=== PATIENT | male | born 1930 | race Caucasian/White ===

== ENCOUNTER 2016-07-06 08:41 | Emergency (ER) ==
[2016-07-06 08:45] VITALS: BP 153/77; TEMP 98.8; BMI 25.1
--- NOTE | 2016-07-06 09:15 | ED.PDOC ---
General ED Provider: Dr. SUZETTE YOUNG Chief Complaint: Nosebleed Stated Complaint: nose bleed Time Seen by Physician: 08:48 (multiple nose bleed last week also) Mode of Arrival: Walk-In Information Source: Patient Exam Limitations: No limitations Primary Care Provider: ANDRES MOLINA Nursing and Triage Documentation Reviewed and Agree: Yes Review of Systems - Review Of Systems Constitutional: Reports: No symptoms Eyes: Reports: No symptoms Ears, Nose, Mouth, Throat: Reports: Epistaxis Respiratory: Reports: No symptoms Cardiac: Reports: No symptoms GI: Reports: No symptoms : Reports: No symptoms Musculoskeletal: Reports: No symptoms Skin: Reports: No symptoms Neurological: Reports: No symptoms Endocrine: Reports: No symptoms Hematologic/Lymphatic: Reports: No symptoms All Other Systems: Reviewed and Negative Past Medical History - Past Medical History Previously Healthy: No Endocrine: Reports: None Cardiovascular: Reports: Hypertension Respiratory: Reports: None Hematological: Reports: None Gastrointestinal: Reports: None Genitourinary: Reports: None Neuro/Psych: Reports: Parkinson's Musculoskeletal: Reports: None Cancer: Reports: None - Surgical History General Surgical History: Reports: None - Family History Family History: Reports: None - Social History Smoking Status: Never smoker Hx Substance Use: No Alcohol Screening: None Physical Exam - Physical Exam Appearance: Well-appearing, No pain distress, Well-nourished Eyes: LONNIE, EOMI, Conjunctiva clear ENT: Epistaxis (right sided stoped spontanously in ED ) Respiratory: Airway patent, Breath sounds clear, Breath sounds equal, Respirations nonlabored Cardiovascular: RRR, Pulses normal, No rub, No murmur GI/: Soft, Nontender, No masses, Bowel sounds normal, No Organomegaly Musculoskeletal: Normal strength, ROM intact, No edema, No calf tenderness Skin: Warm, Dry, Normal color Neurological: Sensation intact, Motor intact, Reflexes intact, Cranial nerves intact, Alert, Oriented Psychiatric: Affect appropriate, Mood appropriate Critical Care Note - Critical Care Note Total Time (mins): 0 Course - Course Orders, Labs, Meds: Orders Category Date Time Status CBC W/ AUTO DIFF Stat LAB 07/06/16 09:02 Ordered PARTIAL THROMBOPLASTIN TIME Stat LAB 07/06/16 09:02 Ordered PT WITH INR Stat LAB 07/06/16 09:02 Ordered Vital Signs: Temp Pulse Resp BP Pulse Ox 07/06/16 08:41 98.8 F 66 20 153/77 H 96 Departure - Departure Time of Disposition: 09:14 (SPOKE TO DR HASKINS WILL SEE PT IN OFFICE/ CLINIC RIGHT NOW) Disposition: HOME SELF-CARE Discharge Problem: Epistaxis Instructions: Nosebleed (ED) Condition: Good Pt referred to PMD for follow-up: No Additional Instructions: Please call your Family Physician as soon as possible to schedule a follow-up appointment. Allergies/Adverse Reactions: Allergies Sulfa (Sulfonamide Antibiotics) Allergy (Severe, Verified 07/06/16 08:45) Rash Home Medications: Ambulatory Orders Aspirin 81 mg PO DAILY #1 tab-cap 07/05/16 Calcium Carbonate [Calcium] 1,000 mg PO DAILY #2 tab-cap 07/05/16 Carbidopa/Levodopa [Carbidopa-Levodopa 25-100 Tab] 1 each PO 3xDaily #1 tab-cap 07/05/16 Losartan Potassium 50 mg PO BID #1 tab-cap 07/05/16 Lovastatin 40 mg PO DAILY #1 tab-cap 07/05/16 Multivitamin [Multi-Vitamin Daily] 1 each PO DAILY #1 tab-cap 07/05/16 [place]-3/Dha/Epa/Fish Oil [Fish Oil 1,000 Mg Softgel] 1,000 mg PO DAILY #1 tab- cap 07/05/16 Rasagiline Mesylate [Azilect] 1 mg PO DAILY #1 tab-cap 07/05/16 Vit A/Vit C/Vit E/Zinc/Copper [Preservision Areds Softgel] 1 each PO BID tab- cap 07/05/16 Vitamin B Complex & Vit C No.4 [Super B Complex] 150 mg PO DAILY #1 tab-cap
[2016-07-06 09:20] LABS: BASOPHILS % (AUTO) 0.4 % (0.0-3.0); EOSINOPHILS % (AUTO) 0.6 % (0.0-7.0); HEMATOCRIT 37.1 % (42.0-52.0); HEMOGLOBIN 12.9 g/dl (14.0-18.0); IMMATURE GRANULOCYTE % (AUTO) 0.3 % (0.0-5.0); LYMPHOCYTES # (AUTO) 1.4 K/uL (0.60-3.4); LYMPHOCYTES % (AUTO) 19.7 (10.0-50.0); MEAN CORPUSCULAR HEMOGLOBIN 31.3 pg (27.0-31.0); MEAN CORPUSCULAR HGB CONC 34.8 (31.8-35.4); MONOCYTES # (AUTO) 0.6 K/uL (0.4-2.0); MONOCYTES % (AUTO) 8.6 (0-10); NEUTROPHILS # (AUTO) 4.8 K/ul (2.0-6.9); NEUTROPHILS % (AUTO) 70.4; PLATELET COUNT 232 10^3/uL (140-440); RED BLOOD COUNT 4.12 10^6/ul (4.70-6.10); WHITE BLOOD COUNT 6.85 K/ul (4.2-10.2)
[2016-07-06 09:35] LABS: PARTIAL THROMBOPLASTIN TIME < 21.0 SEC (23.9-40.0); PROTHROMBIN TIME 10.4 SEC (9.3-11.0)
== END 2016-07-06 09:24 | disposition home or self-care (01) ==
LOC: ED 08:41
DX: R04.0 Epistaxis (principal); I10 Essential (primary) hypertension; Z79.899 Other long term (current) drug therapy
CPT/HCPCS: 36415; 85025; 85610; 85730; 99282

== ENCOUNTER 2017-01-03 14:41 | Emergency (ER) | payer OTHER ==
[2017-01-03 14:58] VITALS: BMI 25.0
--- NOTE | 2017-01-03 15:09 | ED.PDOC ---
General ED Provider: Dr. ALIYAH ZAPATA Chief Complaint: Seizure Stated Complaint: Seizure X2 witnessed by Dr. Molina in office Time Seen by Physician: 15:05 Mode of Arrival: Wheelchair Information Source: Patient, Family Exam Limitations: No limitations Primary Care Provider: ANDRES MOLINA Nursing and Triage Documentation Reviewed and Agree: Yes Review of Systems - Review Of Systems Constitutional: Reports: Malaise (Has had more seizure type episodes reported by family in last 12 days) Respiratory: Reports: No symptoms All Other Systems: Reviewed and Negative Past Medical History - Past Medical History Previously Healthy: No Endocrine: Reports: None Cardiovascular: Reports: Hypertension Respiratory: Reports: None Hematological: Reports: None Gastrointestinal: Reports: None Genitourinary: Reports: None Neuro/Psych: Reports: Parkinson's Musculoskeletal: Reports: None Cancer: Reports: None - Surgical History General Surgical History: Reports: None - Family History Family History: Reports: None - Social History Smoking Status: Never smoker Hx Substance Use: No Alcohol Screening: None Physical Exam - Physical Exam Appearance: Well-appearing Eyes: LONNIE, EOMI, Conjunctiva clear ENT: Nose normal, Oropharynx normal Neck: Supple Respiratory: Breath sounds clear Cardiovascular: RRR, Pulses normal GI/: Soft, Nontender Musculoskeletal: Normal strength, ROM intact, No edema Skin: Warm, Dry, Normal color Neurological: Sensation intact, Motor intact Psychiatric: Affect appropriate, Mood appropriate Interpretation - Radiology Interpretation Radiology Interpretation By: Radiologist Radiology Results: Negative Exam Interpreted: CT Scan (Head) Xray Comments: No acute IC process - Landscape Supervisor Rate: Normal Rhythm: Sinus - EKG Interpretation Time of EKG #1: 16:02 Rate: Normal Rhythm: Sinus Ectopy: None Interpretation: T wave changes non specific Re-Evaluation - Re-Evaluation Time of Re-Evaluation: 16:30 Status: Unchanged Vital Signs Stable: Yes Appearance: NAD Lungs: Clear Skin: Warm and Dry Neuro: Alert and Oriented X3 Physician Notification - Case Discussed Physician Notified: Dr. Molina Time of Notification: 16:30 (Discussed transfer plan) Critical Care Note - Critical Care Note Total Time (mins): 45 Course - Course Hematology/Chemistry: 01/03/17 15:20 01/03/17 15:20 Orders, Labs, Meds: Lab Review 01/03/17 01/03/17 01/03/17 15:15 15:20 15:20 WBC 4.65 RBC 4.26 L Hgb 12.8 L Hct 37.6 L MCV 88.3 MCH 30.0 MCHC 34.0 RDW Coeff of Darrel 13.2 Plt Count 190 Immature Gran % (Auto) 0.2 Neut % (Auto) 44.3 Lymph % (Auto) 41.3 Irwin % (Auto) 9.9 Eos % (Auto) 3.7 Baso % (Auto) 0.6 Immature Gran # (Auto) 0.0 Neut # 2.1 Lymph # 1.9 Irwin # 0.5 Eos # 0.2 Baso # 0.0 Sodium 137 Potassium 4.4 Chloride 104 Carbon Dioxide 27 Anion Gap 10.4 BUN 24 H Creatinine 1.21 H Estimated GFR (MDRD) 57.00 BUN/Creatinine Ratio 19.83 Glucose 151 H Calcium 9.2 Total Bilirubin 0.38 AST 15 ALT < 6 L Alkaline Phosphatase 67 Troponin I 0.0260 Total Protein 6.1 Albumin 3.4 Globulin 2.7 Albumin/Globulin Ratio 1.26 Urine Color Urine Clarity Urine pH Ur Specific [place] Urine Protein Urine Glucose (UA) Urine Ketones Urine Blood Urine Nitrite Urine Bilirubin Urine Urobilinogen Ur Leukocyte Esterase 01/03/17 16:05 WBC RBC Hgb Hct MCV MCH MCHC RDW Coeff of Darrel Plt Count Immature Gran % (Auto) Neut % (Auto) Lymph % (Auto) Irwin % (Auto) Eos % (Auto) Baso % (Auto) Immature Gran # (Auto) Neut # Lymph # Irwin # Eos # Baso # Sodium Potassium Chloride Carbon Dioxide Anion Gap BUN Creatinine Estimated GFR (MDRD) BUN/Creatinine Ratio Glucose Calcium Total Bilirubin AST ALT Alkaline Phosphatase Troponin I Total Protein Albumin Globulin Albumin/Globulin Ratio Urine Color Yellow Urine Clarity Clear Urine pH 6.0 Ur Specific [place] 1.015 Urine Protein Negative Urine Glucose (UA) Negative Urine Ketones Negative Urine Blood Negative Urine Nitrite Negative Urine Bilirubin Negative Urine Urobilinogen 1.0 Ur Leukocyte Esterase Negative Orders Category Date Time Status EKG-(ED ONLY) Stat CARDIO 01/03/17 15:55 Completed CBC W/ AUTO DIFF Stat LAB 01/03/17 15:20 Completed COMPREHENSIVE METABOLIC PANEL Stat LAB 01/03/17 15:20 Completed TROPONIN I Stat LAB 01/03/17 15:15 Completed URINALYSIS C & S IF INDICATED Stat LAB 01/03/17 16:[address] HEAD W/O CONTRAST Stat RADS 01/03/17 15:07 Completed ULTRASOUND DOPPLER CAROTID [U/S DOPPLER CAROTID] Stat RADS 01/03/17 15:49 Ordered Vital Signs: Temp Pulse Resp BP Pulse Ox 01/03/17 14:42 98.2 F 57 L 20 152/74 H 96 Departure - Departure Time of Disposition: 19:02 Disposition: TSF SHORT-TRM HOSP Discharge Problem: Seizure Instructions: Recurrent Seizures in Adults (ED) Condition: Stable Pt referred to PMD for follow-up: Yes (Follow up with Dr. Molina) Allergies/Adverse Reactions: Allergies Sulfa (Sulfonamide Antibiotics) Allergy (Severe, Verified 01/03/17 15:00) Rash Home Medications: Ambulatory Orders Aspirin 81 mg PO DAILY #1 tab-cap 07/05/16 Carbidopa/Levodopa [Carbidopa-Levodopa 25-100 Tab] 1 each PO 3xDaily #1 tab-cap 07/05/16 Losartan Potassium 50 mg PO BID #1 tab-cap 07/05/16 Lovastatin 40 mg PO DAILY #1 tab-cap 07/05/16 Rasagiline Mesylate [Azilect] 1 mg PO DAILY #1 tab-cap 07/05/16 Carvedilol [Coreg] 3.125 mg PO DAILY 01/03/17
[2017-01-03 15:23] LABS: BASOPHILS % (AUTO) 0.6 % (0.0-3.0); EOSINOPHILS # (AUTO) 0.2 K/ul (0.0-0.7); EOSINOPHILS % (AUTO) 3.7 % (0.0-7.0); HEMATOCRIT 37.6 % (42.0-52.0); HEMOGLOBIN 12.8 g/dl (14.0-18.0); IMMATURE GRANULOCYTE % (AUTO) 0.2 % (0.0-5.0); LYMPHOCYTES # (AUTO) 1.9 K/uL (0.60-3.4); LYMPHOCYTES % (AUTO) 41.3 (10.0-50.0); MEAN CORPUSCULAR VOLUME 88.3 fl (80.0-94.0); MONOCYTES # (AUTO) 0.5 K/uL (0.4-2.0); MONOCYTES % (AUTO) 9.9 (0-10); NEUTROPHILS # (AUTO) 2.1 K/ul (2.0-6.9); NEUTROPHILS % (AUTO) 44.3; PLATELET COUNT 190 10^3/uL (140-440); RED BLOOD COUNT 4.26 10^6/ul (4.70-6.10); WHITE BLOOD COUNT 4.65 K/ul (4.2-10.2)
--- NOTE | 2017-01-03 15:49 | CT ---
EXAM: CT head without contrast. HISTORY: Seizure. COMPARISON: None available. TECHNIQUE: Multiple axial images of the brain were obtained from the skull base through the vertex w ithout intravenous contrast. Multiplanar reformats were provided. FINDINGS: There is no intracranial hemorrhage or extraaxial collection. The ybarra-white differentiat ion is maintained without evidence for acute large vascular territory infarction. There are areas of periventricular and subcortical white matter low attenuation. The cortical sulci and cerebral ventr icles are symmetrically enlarged. The basal cisterns are well visualized. There is no hydrocephalus , mass effect, or midline shift. The paranasal sinuses and mastoid air cells are clear. The calvari um is intact. IMPRESSION: 1. No acute intracranial abnormality. 2. Chronic small vessel ischemic changes and atrophy.
[2017-01-03 15:56] LABS: ALANINE AMINOTRANSFERASE < 6 U/L (12-78); ALBUMIN 3.4 g/dL (3.4-5.0); ALBUMIN/GLOBULIN RATIO 1.26; ALKALINE PHOSPHATASE 67 U/L (56-119); ANION GAP 10.4; ASPARTATE AMINO TRANSFERASE 15 U/L (15-37); BILIRUBIN,TOTAL 0.38 mg/dL (0.00-1.20); BLOOD UREA NITROGEN 24 mg/dL (7-18); BUN/CREATININE RATIO 19.83; CALCIUM 9.2 mg/dL (8.2-10.2); CARBON DIOXIDE 27 mmol/L (23-31); CHLORIDE 104 mmol/L (98-107); CREATININE 1.21 mg/dL (0.60-1.10); GLUCOSE 151 mg/dL (82-115); POTASSIUM 4.4 mmol/L (3.5-5.1); SODIUM 137 mmol/L (136-145); TOTAL PROTEIN 6.1 g/dL (5.8-8.1)
[2017-01-03 16:16] LABS: BILIRUBIN,URINE Negative (NEGATIVE); KETONES,URINE Negative (NEGATIVE); LEUKOCYTE ESTERASE ,URINE Negative (NEGATIVE); NITRITE,URINE Negative (NEGATIVE); PROTEIN,URINE Negative (NEGATIVE); URINE, BLOOD Negative (NEGATIVE)
[2017-01-03 16:20] LABS: ADD URINE MICROSCOPIC NO
[2017-01-03 19:54] VITALS: BP 138/78; TEMP 98.3
== END 2017-01-03 19:45 | disposition short-term general hospital (02) ==
LOC: ED 14:41
DX: R56.9 Unspecified convulsions (principal); G20 Parkinson's disease; I10 Essential (primary) hypertension; Z79.899 Other long term (current) drug therapy
CPT/HCPCS: 36415; 80053; 81001; 84484; 85025; 93005; 93010; 96361; 96374; 96375; 99285

== ENCOUNTER 2018-10-08 09:44 | Emergency (ER) | payer OTHER ==
[2018-10-08 09:51] VITALS: BP 171/69; TEMP 98.1; BMI 25.1
--- NOTE | 2018-10-08 11:04 | CT ---
EXAM: CT of the head without contrast. History: Head trauma. Comparison: Head CT 01/03/2017 Technique: Multiplanar CT images through the head were obtained without the administration of IV con trast Findings: The visualized paranasal sinuses and mastoid air cells are clear in general. No acute zoraida varial abnormalities. Intracranially the ventricular and cisternal spaces are normal in size, shape and configuration for a patient of this age. No dominant mass or midline shift. No hydrocephalous. No acute intracranial hemorrhage or abnormal extraaxial fluid collections. Periventricular and subcortical white matter hy podensities are probably age appropriate. Impression: No acute intracranial process
--- NOTE | 2018-10-08 11:08 | CT ---
EXAM: CT of the cervical spine without contrast History: Head and neck trauma. Technique: Multiplanar CT images through the cervical spine were obtained without the administration of IV contrast. Comparison: Chest CT 10/08/2018 Findings: There is subcutaneous emphysema within the right neck and partially visualized right upper rib fractures. Small partially visualized right pneumothorax. Please see dedicated chest CT done o n the same day. Osteopenia. No acute fracture or subluxation of the cervical spine. Reversal of the normal cervical lordosis. Moderate to severe multilevel disc space narrowing with endplate sclerosis and osteophyte formation. Bony spinal canal is not significantly compromised. Moderate multilevel bilateral bony neural for narrowing secondary to uncovertebral and facet hypertrophy. The bony neural foraminal mike rowing is severe on the right at C5-6. Impression: No acute osseous abnormality of the cervical spine
--- NOTE | 2018-10-08 11:12 | CT ---
EXAM: CT of the thoracic spine without contrast History: Thoracic back trauma. Comparison: Chest CT 10/08/2018 Technique: Multiplanar CT images through the thorax were obtained without the administration of IV c ontrast Findings: For details in the visualized chest, please see dedicated chest CT done on the same day. Small right pneumothorax. Small right hemothorax. There is subcutaneous emphysema along the right c hest wall. Partially visualized right-sided rib fractures. Atherosclerotic vascular calcifications. 5 mm calculus within the left kidney. No acute fracture or subluxation of the thoracic spine. Mild chronic compression deformity involving the inferior endplate of T12. Moderate multilevel disc space narrowing with endplate sclerosis, ost eophyte formation and vacuum disc phenomenon. Bony spinal canal is not significantly compromised. Impression: 1. No acute osseous abnormality of the thoracic spine. 2. Degenerative disc disease. 3. For details within the thorax, please see dedicated chest CT done on the same day.
--- NOTE | 2018-10-08 11:14 | CT ---
EXAM: CT of the pelvis without contrast History: Pelvic trauma. Technique: Multiplanar CT images through the pelvis were obtained without the administration of IV c ontrast. Comparison: Lumbar spine CT 10/08/2018 Findings: Atherosclerotic vascular calcifications. Scattered colonic stool. Subcutaneous emphysema is seen on the right. Severe degenerative changes seen within the lower lumbar spine. No acute fra cture or dislocation. Chondrocalcinosis seen within the bilateral hip joints and within the pubic sy mphysis. Mild narrowing of bilateral hip joints. Impression: No acute pelvic fractures
--- NOTE | 2018-10-08 11:18 | CT ---
EXAM: CT of the chest without contrast History: Chest trauma. Technique: Multiplanar CT images through the thorax were obtained without the administration of IV c ontrast Findings: Heart is borderline enlarged. No pericardial effusion. Coronary calcifications and valvu lar calcifications of the heart. No thoracic aortic aneurysm. No pathologically enlarged thoracic l ymph nodes. There is a small right pneumothorax. Small right hemothorax. No obvious pulmonary cont usions. Extensive subcutaneous emphysema seen along the right chest wall and extending into the neck . There are displaced fractures of the right 5th through 10th ribs. Within the visualized upper abdomen, no grossly acute findings. 5 mm calculus within the left kidney . Moderate colonic stool. Sternotomy wires. Impression: 1. Small right pneumothorax. 2. Small right hemothorax. 3. No obvious pulmonary contusions. 4. Multiple displaced right-sided rib fractures. 5. Subcutaneous emphysema along the right chest wall
--- NOTE | 2018-10-08 11:24 | CT ---
Exam: CT lumbar spine without intravenous contrast. Comparison: MRI lumbar spine performed 08/10/2015. Reason for exam: Fall. FINDINGS: No vertebral body height loss is seen. There is multilevel degenerative disease seen thro ughout the lumbosacral spine with intervertebral body disc space height loss and osteophyte formation . There is straightening of the cervical lordotic curve. Air is seen in the subcutaneous fat adjace nt to the right posterior spinous muscles. Image interpretation is limited by diffuse osseous demine ralization. Small, partially evaluated right-sided effusion. T12-L1: Intervertebral body disc space height loss with osteophyte formation with mild central canal and foraminal narrowing. L1-L2: Intervertebral body disc space height loss with osteophyte formation resulting in mild to mod erate central canal and foraminal narrowing. L2-L3: Intervertebral body disc space height loss with osteophyte formation resulting in moderate ce ntral canal and foraminal narrowing. L3-L4: Broad-based disc bulge with facet hypertrophy and ligamentous calcification resulting in mode rate to severe central canal and foraminal narrowing. Laminectomy is seen at this location. L4-L5: Broad-based disc bulge with facet hypertrophy resulting in moderate to marked central canal a nd foraminal narrowing. Laminectomy is seen at this location. L5-S1: Broad-based disc bulge with facet hypertrophy resulting in mild to moderate central canal and foramina are not Impression: 1. No acute fracture is seen within the lumbosacral spine. 2. Multilevel moderate to severe degenerative disease as described. 3. Air in the subcutaneous fat adjacent to the right paraspinous muscles likely secondary to soft ti ssue trauma. Consider further evaluation. 4. Small, partially evaluated right-sided pleural effusion
--- NOTE | 2018-10-08 11:50 | ED.PDOC ---
General ED Provider: Dr. SUZETTE YOUNG Chief Complaint: Fall Stated Complaint: FALL CHEST WALL INJURY 12 HOURS AGO Time Seen by Physician: 10:00 (NURSE PRESENT AT ALL TIME ) Mode of Arrival: Walk-In Information Source: Patient Exam Limitations: No limitations Primary Care Provider: ANDRES MOLINA Nursing and Triage Documentation Reviewed and Agree: Yes Does patient meet sepsis criteria?: No System Inflammatory Response Syndrome: Not Applicable Sepsis Protocol: For patient's 13 years and over: Temp is 96.8 and below OR 101 and greater Pulse >90 BPM Resp >20/minute Acutely Altered Mental Status Are patient's symptoms suggestive of a new infection, such as: -Pneumonia -Skin, Soft Tissue -Endocarditis -UTI -Bone, Joint Infection -Implantable Device -Acute Abdominal Infection -Wound Infection -Meningitis -Blood Stream Catheter Infection -Unknown Trauma/Injury Complaint Exam - Trauma Complaint/Exam Location of Pain or Injury: Reports: Head, Neck, Chest, Back Mechanism of Injury: Reports: Fall (NONE SYNCOPAL FALL) Onset/Duration: 12 HRS Symptoms Are: Still present Timing of Treatment: Immediate Initial Severity: Moderate Current Severity: Moderate Character: Reports: Aching Aggravating: Reports: Movement Alleviating: Reports: Rest Associated Signs and Symptoms: Denies: LOC, Confusion, Memory loss, Lethargy, Vomiting, Bleeding, Bruising, Swelling, Extremity disuse, Painful respiration, Hoarseness, Dysphagia, Hemoptysis, Significant blood loss Related Surgical History: Reports: None Nexus Low Risk Criteria: No post-midline CS tender, No evidence of intoxicat., No Altered LOC, No focal neuro deficit Glascow Coma Scale (see protocol): 15 Trauma Findings: Absent: [place] eyes, Hemotympanum, Nasal deformity, Dental tenderness, Dental injury, Dental malocclusion, Neck tenderness, Neck spasm, SubQ Air, Crepitus, Airway obstructed, Trachea displaced, Labored respirations, Decreased breath sounds, Muffled heart sounds, Weak pulses, Absent pulses, Abdominal distention, Pelvic tenderness, Pelvic instability Differential Diagnoses: Contusions, Fracture, Dislocation, Sprain, Strain Review of Systems - Review Of Systems Constitutional: Reports: No symptoms Eyes: Reports: No symptoms Ears, Nose, Mouth, Throat: Reports: No symptoms Respiratory: Reports: No symptoms Cardiac: Reports: Chest pain (CHEST WALL) GI: Reports: No symptoms : Reports: No symptoms Musculoskeletal: Reports: No symptoms Skin: Reports: No symptoms Neurological: Reports: No symptoms Endocrine: Reports: No symptoms Hematologic/Lymphatic: Reports: No symptoms All Other Systems: Reviewed and Negative Past Medical History - Past Medical History Previously Healthy: No Endocrine: Reports: None Cardiovascular: Reports: Hypertension Respiratory: Reports: None Hematological: Reports: None Gastrointestinal: Reports: None Genitourinary: Reports: None Neuro/Psych: Reports: Parkinson's Musculoskeletal: Reports: None Cancer: Reports: None - Surgical History General Surgical History: Reports: None - Family History Family History: Reports: None - Social History Smoking Status: Never smoker Hx Substance Use: No Alcohol Screening: None - Immunizations Tetanus Shot up to Date: No Physical Exam - Physical Exam Appearance: Well-appearing, No pain distress, Well-nourished Eyes: LONNIE, EOMI, Conjunctiva clear ENT: Ears normal, Nose normal, Oropharynx normal Respiratory: Airway patent, Breath sounds clear, Breath sounds equal, Respirations nonlabored Cardiovascular: RRR, Pulses normal, No rub, No murmur GI/: Soft, Nontender, No masses, Bowel sounds normal, No Organomegaly Musculoskeletal: Limited ROM (CHEST WALL) Skin: Warm, Dry, Normal color Neurological: Sensation intact, Motor intact, Reflexes intact, Cranial nerves intact, Alert, Oriented Psychiatric: Affect appropriate, Mood appropriate Interpretation - Radiology Interpretation Radiology Interpretation By: Radiologist Radiology Results: Positive (RIGHT SIDED RIB FRACTURE FROM RIB 5 TO 10 WITH SMALL HEMO PNEUMOTHORAX) - Tape Calender Rate: Justo Rhythm: Sinus - EKG Interpretation Rate: Justo (LATERAL ISCHEMIA) Rhythm: Sinus ST Segment: Other (RBBB) Re-Evaluation - Re-Evaluation Time of Re-Evaluation: 12:00 Status: Unchanged Vital Signs Stable: Yes Pain Level: 4 Appearance: NAD Lungs: Clear Skin: Warm and Dry Neuro: Alert and Oriented X3 CV: RRR Physician Notification - Case Discussed Physician Notified: PMD Time of Notification: 12:08 (TRANSFER ) Admit/Transition Orders Entered by ED Provider: No Critical Care Note - Critical Care Note Total Time (mins): 120 Course - Course Hematology/Chemistry: 10/08/18 10:03 10/08/18 10:03 Orders, Labs, Meds: Lab Review 10/08/18 10/08/18 10:03 10:03 WBC 6.84 RBC 4.41 L Hgb 13.6 L Hct 40.3 L MCV 91.4 MCH 30.8 MCHC 33.7 RDW Coeff of Darrel 13.5 Plt Count 169 Immature Gran % (Auto) 0.3 Neut % (Auto) 75.5 Lymph % (Auto) 15.1 [place] % (Auto) 8.2 Eos % (Auto) 0.6 Baso % (Auto) 0.3 Immature Gran # (Auto) 0.0 Neut # (Auto) 5.2 Lymph # (Auto) 1.0 [place] # (Auto) 0.6 Eos # (Auto) 0.0 Baso # (Auto) 0.0 Sodium 138.7 Potassium 4.03 Chloride 101.7 Carbon Dioxide 30.5 H Anion Gap 10.53 BUN 25.7 H Creatinine 1.29 H Estimated GFR (MDRD) 52.00 BUN/Creatinine Ratio 19.92 Glucose 126.0 H Calcium 9.13 Total Bilirubin 0.82 AST 31.1 ALT 11.7 Alkaline Phosphatase 80.8 Total Protein 7.02 Albumin 4.32 Globulin 2.70 Albumin/Globulin Ratio 1.60 Orders Category Date Time Status EKG-(ED ONLY) Stat CARDIO 10/08/18 09:53 Completed CBC W/ AUTO DIFF Stat LAB 10/08/18 10:03 Completed COMPREHENSIVE METABOLIC PANEL Stat LAB 10/08/18 10:[address] CERVICAL SPINE W/O CONTRAST Stat RADS 10/08/18 09:[address] CHEST W/O CONTRAST Stat RADS 10/08/18 09:[address] HEAD W/O CONTRAST Stat RADS 10/08/18 09:[address] LUMBAR SPINE W/O CONTRAST Stat RADS 10/08/18 09:[address] PELVIS W/O CONTRAST Stat RADS 10/08/18 09:[address] THORACIC SPINE W/O CONTRAST Stat RADS 10/08/18 09:54 Completed Vital Signs: Temp Pulse Resp BP Pulse Ox 10/08/18 09:44 98.1 F 61 14 171/69 H 97 Departure - Departure Time of Disposition: 13:00 Disposition: TSF SHORT-TRM HOSP Discharge Problem: Hemothorax on right Pneumothorax Qualifiers: Pneumothorax type: traumatic Encounter type: initial encounter Qualified Code(s ): S27.0XXA - Traumatic pneumothorax, initial encounter Rib fractures Qualifiers: Encounter type: initial encounter Rib fracture type: multiple ribs Fracture type: closed Laterality: right Qualified Code(s): S22.41XA - Multiple fractures of ribs, right side, initial encounter for closed fracture Condition: Good Pt referred to PMD for follow-up: Yes IPMP verified?: No Additional Instructions: Please call your Family Physician as soon as possible to schedule a follow-up appointment. Allergies/Adverse Reactions: Allergies Sulfa (Sulfonamide Antibiotics) Allergy (Severe, Verified 10/08/18 09:59) Rash Home Medications: Ambulatory Orders Aspirin 81 mg PO DAILY #1 tab-cap 07/05/16 Carbidopa/Levodopa [Carbidopa-Levodopa 25-100 Tab] 1 each PO 3xDaily #1 tab-cap 07/05/16 Losartan Potassium 50 mg PO BID #1 tab-cap 07/05/16 Lovastatin 40 mg PO DAILY #1 tab-cap 07/05/16 Rasagiline Mesylate [Azilect] 1 mg PO DAILY #1 tab-cap 07/05/16 Carvedilol [Coreg] 3.125 mg PO DAILY 01/03/17 Amantadine HCl [Amantadine] 100 mg PO BID 10/08/18 Fludrocortisone Acetate 0.1 mg PO DAILY 10/08/18 Vit C/Vit E AC/Lut/Copper/Zinc [Preservision Lutein Softgel] 1 each PO BID 10/08 Disposition Discussed With: Patient, Family
== END 2018-10-08 13:44 | disposition short-term general hospital (02) ==
LOC: ED 09:44
DX: S27.0XXA Traumatic pneumothorax, initial encounter (principal); S22.41XA Multiple fractures of ribs, right side, initial encounter for closed fracture; S09.90XA Unspecified injury of head, initial encounter; S19.9XXA Unspecified injury of neck, initial encounter; G20 Parkinson's disease; I10 Essential (primary) hypertension; W19.XXXA Unspecified fall, initial encounter
CPT/HCPCS: 36415; 80053; 85025; 93005; 93010; 99285

== ENCOUNTER 2018-10-08 13:40 | Outpatient (CLI) ==
[2018-10-08 09:51] VITALS: BMI 25.1
== END 2018-10-08 14:05 | disposition short-term general hospital (02) ==
LOC: AMBL 13:40
PROVIDERS: ATTEND Internal Medicine
DX: S22.49XA Multiple fractures of ribs, unspecified side, initial encounter for closed fracture (principal); S27.2XXA Traumatic hemopneumothorax, initial encounter; T79.7XXA Traumatic subcutaneous emphysema, initial encounter; W19.XXXA Unspecified fall, initial encounter

== ENCOUNTER 2018-11-08 22:40 | Inpatient (IN) ==
[2018-11-08] MEDS ORDERED: ZOSYN 3.375 GM 3.375 GM in SODIUM CHLORIDE 50 ML IV STA (22:51)
[2018-11-08] MEDS ORDERED: TYLENOL PO STA (22:51)
[2018-11-08] MEDS ORDERED: VANCOMYCIN 1 GM in SODIUM CHLORIDE 250 ML IV STA (22:51)
[2018-11-08] MEDS ORDERED: SODIUM CHLORIDE 1,000 ML IV STA (22:51)
--- NOTE | 2018-11-08 23:02 | ED.PDOC ---
General ED Provider: Dr. ALICIA POWELL Chief Complaint: Fever Stated Complaint: Fever today T max 102.1. Had been given instruction to send to ER if > 102 by PCP. Recent history of Falls with rib fractures recenlty. Has a history of Parkinsons disease also. Time Seen by Physician: 22:59 Mode of Arrival: Stretcher Information Source: Patient, Family, Custodial, EMT Primary Care Provider: ANDRES MOLINA Nursing and Triage Documentation Reviewed and Agree: Yes Does patient meet sepsis criteria?: No System Inflammatory Response Syndrome: Not Applicable Sepsis Protocol: For patient's 13 years and over: Temp is 96.8 and below OR 101 and greater Pulse >90 BPM Resp >20/minute Acutely Altered Mental Status Are patient's symptoms suggestive of a new infection, such as: -Pneumonia -Skin, Soft Tissue -Endocarditis -UTI -Bone, Joint Infection -Implantable Device -Acute Abdominal Infection -Wound Infection -Meningitis -Blood Stream Catheter Infection -Unknown Miscellaneous Complaint Exam - Febrile Illness/Adult Complaint/Exam Onset/Duration: 1 day Symptoms Are: Still present Timing: Constant Highest Temperature Recorded: 102.2 Initial Severity: Moderate Current Severity: Moderate Alleviating: Reports: None Associated Signs and Symptoms: Denies: Headache, Fluid intake, Short of air, Cough, Sore throat, Nausea, Vomiting, Chills, Diaphoresis, Dysuria, Arthralgia, Stiff neck, Myalgia, Rash, Altered mental status Pseudomonas Risk Factors: Reports: None Serious Bacterial Infection Risk Factors: Reports: None Current Antibiotic Use: No Specific Findings: Absent: Meningeal signs, Diaphoresis, Joint swelling, Erythema, Cellulitis, Lymphadenopathy, Petechiae, CVA tenderness Differential Diagnoses: Bacteremia, Pneumonia, Pyelonephritis Quality Indicator For Non-Traumatic Chest Pain/Syncope: EKG Performed Review of Systems - Review Of Systems Constitutional: Reports: Fever Eyes: Reports: No symptoms Ears, Nose, Mouth, Throat: Reports: No symptoms Respiratory: Reports: No symptoms Cardiac: Reports: No symptoms GI: Reports: No symptoms : Reports: No symptoms Musculoskeletal: Reports: No symptoms Skin: Reports: No symptoms Neurological: Reports: No symptoms Endocrine: Reports: No symptoms Hematologic/Lymphatic: Reports: No symptoms All Other Systems: Reviewed and Negative Past Medical History - Past Medical History Previously Healthy: No Endocrine: Reports: None Cardiovascular: Reports: CAD, Hypertension Respiratory: Reports: Pneumonia Hematological: Reports: Anemia Gastrointestinal: Reports: None Genitourinary: Reports: None Neuro/Psych: Reports: Parkinson's, Other (syncope ) Musculoskeletal: Reports: None Cancer: Reports: None Other Pertinent Past Medical History: Rib fractures, Falls. - Surgical History General Surgical History: Reports: CABG, Stent, Back Surgery (Lamiectomy L3,4,5) , Other (cataract surgery ) - Family History Family History: Reports: None - Social History Smoking Status: Never smoker Hx Substance Use: No Alcohol Screening: None - Immunizations Tetanus Shot up to Date: No Physical Exam - Physical Exam Appearance: Ill-appearing Ill-appearing: Severe Pain Distress: None Respiratory: Airway patent, Breath sounds clear, Breath sounds equal, Respirations nonlabored Cardiovascular: RRR, Pulses normal, No rub, No murmur GI/: Soft, Nontender, No masses, Bowel sounds normal, No Organomegaly Musculoskeletal: Normal strength, ROM intact, No edema, No calf tenderness Skin: Warm, Dry, Normal color Neurological: Sensation intact, Motor intact (Tremors noted bilaterally ), Alert , Oriented Psychiatric: Affect appropriate Interpretation - Radiology Interpretation Radiology Interpretation By: Radiologist Radiology Results: No acute changes Exam Interpreted: CT Scan (chest ) - Senior Painter Rate: Normal Rhythm: Sinus Ectopy: None - EKG Interpretation Time of EKG #1: 23:35 Rate: Normal Rhythm: Sinus Ectopy: None [place]: [place] ST Segment: Normal Interpretation: RBBB Re-Evaluation - Re-Evaluation Time of Re-Evaluation: 00:53 Status: Improved Physician Notification - Case Discussed Physician Notified: Dr Molina Time of Notification: 00:40 (accepted for admission ) Critical Care Note - Critical Care Note Total Time (mins): 45 Course - Course Hematology/Chemistry: 11/08/18 23:07 11/08/18 22:51 Orders, Labs, Meds: Lab Review 11/08/18 11/08/18 11/08/18 22:51 22:59 23:00 WBC RBC Hgb Hct MCV MCH MCHC RDW Coeff of Darrel Plt Count Immature Gran % (Auto) Neut % (Auto) Lymph % (Auto) Rooks % (Auto) Eos % (Auto) Baso % (Auto) Immature Gran # (Auto) Neut # (Auto) Lymph # (Auto) Rooks # (Auto) Eos # (Auto) Baso # (Auto) Puncture Site Lb O2 Saturation 95.0 ABG pH 7.497 H ABG pCO2 31.4 L ABG pO2 66.0 L ABG HCO3 24.3 ABG Total CO2 25 ABG Base Excess 1 Elvin Test + FiO2 % 21.0 Sodium 135.2 Potassium 4.02 Chloride 100.1 Carbon Dioxide 27.8 Anion Gap 11.32 BUN 21.8 H Creatinine 1.16 H Estimated GFR (MDRD) 59.00 BUN/Creatinine Ratio 18.79 Glucose 150.4 H Lactic Acid Calcium 9.18 Total Bilirubin 1.20 AST 25.3 ALT 12.5 Alkaline Phosphatase 100.8 Total Protein 6.70 Albumin 3.93 Globulin 2.77 Albumin/Globulin Ratio 1.41 Amylase 79.2 Lipase 101.2 Procalcitonin Urine Color Urine Clarity Urine pH Ur Specific [place] Urine Protein Urine Glucose (UA) Urine Ketones Urine Blood Urine Nitrite Urine Bilirubin Urine Urobilinogen Ur Leukocyte Esterase Urine Microscopic RBC Urine Microscopic WBC Ur Squamous Epith Cells Urine Bacteria Urine Mucus 11/08/18 11/08/18 11/08/18 23:07 23:07 23:07 WBC 9.27 RBC 4.59 L Hgb 13.8 L Hct 40.5 L MCV 88.2 MCH 30.1 MCHC 34.1 RDW Coeff of Darrel 13.6 Plt Count 144 Immature Gran % (Auto) 0.3 Neut % (Auto) 89.6 Lymph % (Auto) 6.7 L Rooks % (Auto) 3.2 Eos % (Auto) 0.0 Baso % (Auto) 0.2 Immature Gran # (Auto) 0.0 Neut # (Auto) 8.3 H Lymph # (Auto) 0.6 Rooks # (Auto) 0.3 L Eos # (Auto) 0.0 Baso # (Auto) 0.0 Puncture Site O2 Saturation ABG pH ABG pCO2 ABG pO2 ABG HCO3 ABG Total CO2 ABG Base Excess Elivn Test FiO2 % Sodium Potassium Chloride Carbon Dioxide Anion Gap BUN Creatinine Estimated GFR (MDRD) BUN/Creatinine Ratio Glucose Lactic Acid 1.80 Calcium Total Bilirubin AST ALT Alkaline Phosphatase Total Protein Albumin Globulin Albumin/Globulin Ratio Amylase Lipase Procalcitonin 0.09 Urine Color Urine Clarity Urine pH Ur Specific [place] Urine Protein Urine Glucose (UA) Urine Ketones Urine Blood Urine Nitrite Urine Bilirubin Urine Urobilinogen Ur Leukocyte Esterase Urine Microscopic RBC Urine Microscopic WBC Ur Squamous Epith Cells Urine Bacteria Urine Mucus 11/09/18 00:06 WBC RBC Hgb Hct MCV MCH MCHC RDW Coeff of Darrel Plt Count Immature Gran % (Auto) Neut % (Auto) Lymph % (Auto) Rooks % (Auto) Eos % (Auto) Baso % (Auto) Immature Gran # (Auto) Neut # (Auto) Lymph # (Auto) Rooks # (Auto) Eos # (Auto) Baso # (Auto) Puncture Site O2 Saturation ABG pH ABG pCO2 ABG pO2 ABG HCO3 ABG Total CO2 ABG Base Excess Elvin Test FiO2 % Sodium Potassium Chloride Carbon Dioxide Anion Gap BUN Creatinine Estimated GFR (MDRD) BUN/Creatinine Ratio Glucose Lactic Acid Calcium Total Bilirubin AST ALT Alkaline Phosphatase Total Protein Albumin Globulin Albumin/Globulin Ratio Amylase Lipase Procalcitonin Urine Color Yellow Urine Clarity Slightly Urine pH 5.5 Ur Specific [place] 1.025 Urine Protein 2+ Urine Glucose (UA) Negative Urine Ketones 1+ Urine Blood 2+ Urine Nitrite Positive Urine Bilirubin Negative Urine Urobilinogen 1.0 Ur Leukocyte Esterase Trace Urine Microscopic RBC 10-20 Urine Microscopic WBC 5-10 Ur Squamous Epith Cells 0-2 Urine Bacteria 3+ Urine Mucus 1+ Orders Category Date Time Status ABG DRAW REQUEST Routine CARDIO 11/08/18 22:59 Completed EKG-(ED ONLY) Stat CARDIO 11/08/18 23:08 Completed OXYGEN Routine CARDIO 11/09/18 00:45 Ordered ACTIVITY .Early Mobilization for VTE Prevention CARE 11/09/18 00:46 Active INTAKE & OUTPUT Q8HR CARE 11/09/18 00:45 Active VITAL SIGNS Q4HR CARE 11/09/18 00:50 Active REGULAR DIET DIETARY 11/09/18 Breakfast Ordered ED APPLY O2 .ONCE EMERGENCY 11/08/18 22:51 Active ED CORE DRILL OPERATOR APPLIED .ONCE EMERGENCY 11/08/18 22:51 Active ED IV/MEDIPORT/POWERPORT .ONCE EMERGENCY 11/08/18 22:51 Active ED VITAL SIGNS Q1HR EMERGENCY 11/08/18 22:51 Active ABG Stat LAB 11/08/18 22:59 Completed AMYLASE Stat LAB 11/08/18 23:00 Completed BASIC METABOLIC PANEL DAILY@0600 LAB 11/09/18 06:00 Ordered BASIC METABOLIC PANEL DAILY@0600 LAB 11/10/18 06:00 Ordered BLOOD CULTURE (ED ONLY) Stat LAB 11/08/18 23:07 Received CBC W/ AUTO DIFF DAILY@0600 LAB 11/09/18 06:00 Ordered CBC W/ AUTO DIFF DAILY@0600 LAB 11/10/18 06:00 Ordered CBC W/ AUTO DIFF Stat LAB 11/08/18 23:07 Completed COMPREHENSIVE METABOLIC PANEL Stat LAB 11/08/18 22:51 Completed LACTIC ACID Stat LAB 11/08/18 23:07 Completed LIPASE Stat LAB 11/08/18 23:00 Completed PROCALCITONIN Stat LAB 11/08/18 23:07 Completed URINALYSIS C & S IF INDICATED Stat LAB 11/09/18 00:06 Completed URINE CULTURE Stat LAB 11/09/18 00:06 Received 0.9 % Sodium Chloride [Saline Flush] MEDS 11/08/18 22:51 Active 1 syr IVF PRN PRN Acetaminophen [Tylenol] MEDS 11/08/18 22:51 Discontinued 650 mg PO ONCE STA Acetaminophen [Tylenol] MEDS 11/09/18 00:45 Ordered 650 mg PO Q4H PRN Amantadine HCl [Amantadine] MEDS 11/09/18 09:00 Ordered 100 mg PO DAILY Aspirin [Aspirin Chewable] MEDS 11/09/18 09:00 Ordered 81 mg PO DAILY Bisacodyl [Dulcolax] MEDS 11/09/18 00:51 Ordered 10 mg PO Q12H PRN Carbidopa/Levodopa [Sinemet 25-100] MEDS 11/09/18 09:00 Ordered DOSE tab PO TID Carvedilol [Coreg] MEDS 11/09/18 09:00 Ordered 3.125 mg PO DAILY Enoxaparin Sodium [Lovenox] MEDS 11/09/18 09:00 Ordered 40 mg SUBCUT DAILY Fludrocortisone Acetate [Fludrocortisone Acetate] MEDS 11/09/18 09:00 Ordered 0.1 mg PO DAILY Hydrocodone Bit/Acetaminophen [Celina 10-325] MEDS 11/09/18 00:51 Ordered DOSE tab PO Q6HR PRN Losartan Potassium [Losartan Potassium] MEDS 11/09/18 09:00 Ordered 50 mg PO BID Piperacillin Sodium/Tazobactam [Zosyn 3.375 gm] 3.375 MEDS 11/08/18 22:51 Discontinued gm 0.9 % Sodium Chloride [Sodium Chloride] 50 ml IV ONCE Rasagiline Mesylate [Azilect] MEDS 11/09/18 09:00 Ordered 1 mg PO DAILY Sodium Chloride 0.9% [Sodium Chloride] 1,000 ml MEDS 11/09/18 01:00 Ordered IV 125 mls/hr Sodium Chloride 0.9% [Sodium Chloride] 1,000 ml MEDS 11/08/18 22:51 Discontinued IV 500 mls/hr Vancomycin HCl [Vancomycin] 1 gm MEDS 11/08/18 22:51 Discontinued 0.9 % Sodium Chloride [Sodium Chloride] 250 ml IV ONCE Vitamin B-6 [Pyridoxine HCl] MEDS 11/09/18 21:00 Ordered 50 mg PO BEDTIME RESUSCITATION STATUS Routine OTHERS 11/09/18 00:[address] CHEST W/O CONTRAST Stat RADS 11/08/18 22:58 Completed OT CONSULTATION Routine THERAPIES 11/09/18 Ordered PT CONSULT Routine THERAPIES 11/09/18 Ordered Medications Generic Name Dose Route Start Last Admin Trade Name Freq PRN Reason Stop Dose Admin Acetaminophen 650 mg 11/09/18 00:45 Tylenol PO Q4H PRN Fever > 102 Hydrocodone Bitart/Acetaminophen tab 11/09/18 00:51 Celina 10-325 PO Q6HR PRN severe pain Aspirin 81 mg 11/09/18 09:00 Aspirin Chewable PO DAILY KASSIDY Bisacodyl 10 mg 11/09/18 00:51 Dulcolax PO Q12H PRN constipation Carbidopa/Levodopa tab 11/09/18 09:00 Sinemet 25-100 PO TID [facility] Carvedilol 3.125 mg 11/09/18 09:00 Coreg PO DAILY [facility] Enoxaparin Sodium 40 mg 11/09/18 09:00 Lovenox SUBCUT DAILY [facility] Sodium Chloride 1,000 mls @ 125 mls/hr 11/09/18 01:00 Sodium Chloride IV .Q8H KASSIDY Non-Formulary Medication 0.1 mg 11/09/18 09:00 Fludrocortisone Acetate [Fludrocortisone Acetate] PO DAILY KASSIDY Non-Formulary Medication 50 mg 11/09/18 09:00 Losartan Potassium [Losartan Potassium] PO BID KASSIDY Non-Formulary Medication 1 mg 11/09/18 09:00 Rasagiline Mesylate [Azilect] PO DAILY [facility] Non-Formulary Medication 100 mg 11/09/18 09:00 Amantadine Hcl [Amantadine] PO DAILY KASSIDY Pyridoxine HCl 50 mg 11/09/18 21:00 Pyridoxine Hcl PO BEDTIME KASSIDY Sodium Chloride 1 syr 11/08/18 22:51 11/08/18 23:34 Saline Flush IVF 1 syr PRN PRN Administration To flush IV Discontinued Medications Generic Name Dose Route Start Last Admin Trade Name Freq PRN Reason Stop Dose Admin Acetaminophen 650 mg 11/08/18 22:51 11/08/18 23:13 Tylenol PO 11/08/18 22:52 650 mg ONCE STA Administration Piperacillin Sod/Tazobactam 50 mls @ 50 mls/hr 11/08/18 22:51 11/08/18 23:38 Sod 3.375 gm/ Sodium Chloride IV 11/08/18 23:50 50 mls/hr ONCE STA Administration Sodium Chloride 1,000 mls @ 500 mls/hr 11/08/18 22:51 11/08/18 23:35 Sodium Chloride IV 11/09/18 00:50 500 mls/hr .Q2H STA Administration Vancomycin HCl 1 gm/ Sodium 250 mls @ 250 mls/hr 11/08/18 22:51 Chloride IV 11/08/18 23:50 ONCE STA Vital Signs: Temp Pulse Resp BP Pulse Ox 11/08/18 22:46 104.1 F H 84 36 H 156/90 H 94 L Departure - Departure Time of Disposition: 00:54 Disposition: ADMITTED INPATIENT Discharge Problem: Urinary tract infection Qualifiers: Urinary tract infection type: acute cystitis Hematuria presence: without hematuria Qualified Code(s): N30.00 - Acute cystitis without hematuria Condition: Stable Pt referred to PMD for follow-up: Yes IPMP verified?: No Allergies/Adverse Reactions: Allergies Sulfa (Sulfonamide Antibiotics) Allergy (Severe, Verified 11/08/18 22:58) Rash Home Medications: Ambulatory Orders Aspirin 81 mg PO DAILY #1 tab-cap 07/05/16 Carbidopa/Levodopa [Carbidopa-Levodopa 25-100 Tab] 1 each PO TID #1 tab-cap Losartan Potassium 50 mg PO BID #1 tab-cap 07/05/16 Lovastatin 40 mg PO BEDTIME #1 tab-cap 07/05/16 Rasagiline Mesylate [Azilect] 1 mg PO DAILY #1 tab-cap 07/05/16 Carvedilol [Coreg] 3.125 mg PO DAILY 01/03/17 Amantadine HCl [Amantadine] 100 mg PO DAILY 10/08/18 Fludrocortisone Acetate 0.1 mg PO DAILY 10/08/18 Acetaminophen 2 tab PO Q6H PRN 11/08/18 Bisacodyl 2 tab PO Q12H PRN 11/08/18 Hydrocodone Bit/Acetaminophen [Celina 10-325] 1 each PO Q6HR PRN 11/08/18 Pyridoxine HCl (Vitamin B6) [Vitamin B-6] 50 mg PO BEDTIME 11/08/18
--- NOTE | 2018-11-09 00:27 | CT ---
EXAM: CT chest without intravenous contrast 11/08/2018. Sagittal and coronal reformatted images obt ained HISTORY: Cough with fever COMPARISON: 10/08/2018 FINDINGS: The heart size appears within normal limits. No pericardial effusion. Atherosclerotic ve ssel disease. Coronary artery calcifications. Bilateral dependent atelectasis. Small right pleural effusion. No pneumothorax. The previously described right-sided fifth through tenth rib fractures are again identified. Anatomi c alignment appears stable. No significant callus formation. IMPRESSION: 1. Stable right-sided displaced rib fractures. 2. No pneumothorax. 3. Bilateral dependent atelectasis 4. Small right pleural effusion. 5. Atherosclerotic vascular disease.
[2018-11-09] MEDS ORDERED: TYLENOL PO PRN (00:45)
[2018-11-09] MEDS ORDERED: NORCO 10-325 PO PRN (00:51)
[2018-11-09] MEDS ORDERED: DULCOLAX PO PRN (00:51)
[2018-11-09] MEDS ORDERED: SODIUM CHLORIDE 1,000 ML IV SCH (01:00)
[2018-11-09] MEDS ORDERED: AZACTAM ONE (02:33)
[2018-11-09 02:54] VITALS: BMI 23.8
[2018-11-09] MEDS: AZACTAM 1 GM in SODIUM CHLORIDE 50 ML IV SCH ×3 (03:36→21:17)
[2018-11-09] MEDS ORDERED: NON-FORMULARY MEDICATION (Amantadine Hcl [Amantadine] 100 MG) PO SCH (09:00)
[2018-11-09] MEDS: SYMMETREL PO SCH (09:11)
[2018-11-09] MEDS: COZAAR PO SCH ×2 (09:11→21:17)
[2018-11-09] MEDS: SINEMET 25-100 PO SCH ×3 (09:11→21:17)
[2018-11-09] MEDS: ASPIRIN CHEWABLE PO SCH (09:11)
[2018-11-09] MEDS: COREG PO SCH (09:12)
[2018-11-09] MEDS: ROCEPHIN 1 GM/50 ML D5W 1 GM/50 ML BAG IV SCH (09:12)
[2018-11-09] MEDS: LOVENOX SUBCUT SCH (09:12)
[2018-11-09] MEDS: SODIUM CHLORIDE 1,000 ML IV SCH ×2 (09:15→22:36)
[2018-11-09] MEDS: MIRALAX PO SCH (12:28)
[2018-11-09] MEDS: RASAGILINE MESYLATE 1 MG PO SCH (12:28)
[2018-11-09] MEDS: FLUDROCORTISONE ACETATE 0.1 MG PO SCH (12:28)
[2018-11-09] MEDS: PYRIDOXINE HCL PO SCH (21:17)
[2018-11-10] MEDS: AZACTAM 1 GM in SODIUM CHLORIDE 50 ML IV SCH ×3 (08:15→21:07)
[2018-11-10] MEDS: ASPIRIN CHEWABLE PO SCH (08:16)
[2018-11-10] MEDS: SINEMET 25-100 PO SCH ×3 (08:16→21:07)
[2018-11-10] MEDS: COZAAR PO SCH ×2 (08:16→21:07)
[2018-11-10] MEDS: SYMMETREL PO SCH (08:16)
[2018-11-10] MEDS: COREG PO SCH (08:16)
[2018-11-10] MEDS: LOVENOX SUBCUT SCH (08:17)
[2018-11-10] MEDS: RASAGILINE MESYLATE 1 MG PO SCH (08:17)
[2018-11-10] MEDS: MIRALAX PO SCH (08:17)
[2018-11-10] MEDS: FLUDROCORTISONE ACETATE 0.1 MG PO SCH (08:17)
[2018-11-10] MEDS: ROCEPHIN 1 GM/50 ML D5W 1 GM/50 ML BAG IV SCH (09:12)
[2018-11-10] MEDS: SODIUM CHLORIDE 1,000 ML IV SCH (15:17)
[2018-11-10] MEDS: PYRIDOXINE HCL PO SCH (21:07)
[2018-11-11] MEDS: AZACTAM 1 GM in SODIUM CHLORIDE 50 ML IV SCH ×2 (05:35→13:35)
[2018-11-11] MEDS: ROCEPHIN 1 GM/50 ML D5W 1 GM/50 ML BAG IV SCH (08:18)
[2018-11-11] MEDS: SYMMETREL PO SCH (08:18)
[2018-11-11] MEDS: COREG PO SCH (08:18)
[2018-11-11] MEDS: COZAAR PO SCH ×2 (08:18→21:10)
[2018-11-11] MEDS: MIRALAX PO SCH (08:18)
[2018-11-11] MEDS: ASPIRIN CHEWABLE PO SCH (08:18)
[2018-11-11] MEDS: SINEMET 25-100 PO SCH ×3 (08:18→21:10)
[2018-11-11] MEDS: LOVENOX SUBCUT SCH (08:19)
[2018-11-11] MEDS: RASAGILINE MESYLATE 1 MG PO SCH (08:34)
[2018-11-11] MEDS: FLUDROCORTISONE ACETATE 0.1 MG PO SCH (08:34)
[2018-11-11] MEDS ORDERED: DULCOLAX RC STA (15:58)
[2018-11-11] MEDS ORDERED: DULCOLAX RC ONE (16:00)
[2018-11-11] MEDS: MAXIPIME 2 GM/50 ML D5W 2 GM/50 ML BAG IV SCH (21:10)
[2018-11-11] MEDS: PYRIDOXINE HCL PO SCH (21:10)
--- NOTE | 2018-11-12 09:07 | HP ---
DATE OF SERVICE: 11/09/18 HISTORY OF PRESENT ILLNESS: This is an 88-year-old white male, who is currently at [place] for Physical Therapy. He started having fever earlier this evening. I was notified and instructed him to go to the emergency room. Temperature got up to 101. He was having chills, some tachypnea. Some time in September he had fallen at home, went to the emergency room here and was found to have multiple rib fractures and a right-sided pneumothorax. He was transferred to [facility], admitted. They felt at this time that the pneumothorax was small and would be self resolving. He was then sent to [place] for rehab. He followed up with Dr. Law, the cardiothoracic surgeon on followup. The repeat chest x-ray showed an increase in the pneumothorax. He was then again admitted to [facility], had a chest tube placed for two days and then was discharged back to [place]. He had a followup with Dr. Law's office on Monday and repeat chest x-ray was normal. PAST MEDICAL HISTORY: 1. Recent fall with right pneumothorax, right hemothorax and multiple right rib fractures which are being followed by Dr. Law in [place]. 2. Ataxia. 3. Hypertension. 4. PAD. 5. History of bradycardia. 6. Aortic stenosis, which is severe. 7. PVCs. 8. Dyslipidemia. 9. History of nosebleeds. 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 11. Hypotension. 12. Syncopal episodes. 13. Parkinson's. 14. B12 deficiency. 15. Coronary artery disease. 16. History of cancer of the prostate which is followed by Dr. Maher. 17. Kyphosis. PAST SURGICAL HISTORY: 1. 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 Richards. 2. Status post right chest tube two weeks ago by Dr. Law due to right pneumothorax. 3. CABG in 2008. 4. Prostatectomy. 5. History of lumbar surgery. REVIEW OF SYSTEMS: CONSTITUTIONAL: Positive for fever and chills. No night sweats. No fatigue, malaise, lethargy. HEENT: Eyes: No visual changes. No eye pain. No eye discharge. ENT: No runny nose. No epistaxis. No sinus pain. No sore throat. No odynophagia. No ear pain. No congestion. RESPIRATORY: No cough, no congestion. No hemoptysis. No shortness of breath. CARDIOVASCULAR: No angina symptoms. No CHF symptoms. No atypical chest pain for CAD. No palpitations. No PND. No orthopnea. GASTROINTESTINAL: No abdominal pain. No nausea or vomiting. No diarrhea or constipation. No hematemesis. No hematochezia. GENITOURINARY: No urgency. No frequency. No dysuria. No hematuria. No obstructive symptoms. No discharge. No pain. No significant abnormal bleeding. MUSCULOSKELETAL: Positive for weakness. No musculoskeletal pain. No joint swelling. NEUROLOGICAL: No headache. No neck pain. No syncope. No seizures. No dizziness. PSYCHIATRIC: Confusion. Not anxious. No depression. No suicidal thoughts. No homicidal thoughts. SKIN: No rash. No lesions. No wounds. ENDOCRINE: No unexplained weight loss. No weight gain. HEMATOLOGIC/LYMPHATIC: No anemia. No purpura. No petechiae. No prolonged or excessive bleeding. No palpable lymph nodes. PERSONAL/FAMILY/SOCIAL HISTORY: He is . He has been living at home with his . They have several children, three daughters. He is pretty active, usually rides his bike and walks. Nonsmoker. No alcohol or ilicit drug use. MEDICATIONS: (HOME) Lovastatin 40 mg p.o. bedtime Aspirin 81 mg p.o. daily Carbidopa/Levodopa one each p.o. t.i.d. Losartan 50 mg p.o. b.i.d. Azilect 1 mg p.o. daily Coreg 3.125 mg p.o. daily Fludrocortisone 0.1 mg p.o. daily Amantadine 100 mg p.o. daily Bisacodyl 5 mg two tab p.o. q.12h p.r.n. Acetaminophen 500 mg two tab p.o. q.6h p.r.n. Pyridoxine 50 mg p.o. bedtime Hydrocodone Bit/Acetaminophen one each p.o. q.6hr p.r.n. ALLERGIES: SULFA PHYSICAL EXAMINATION: GENERAL: The patient is alert and oriented to person and place. VITAL SIGNS: Temperature 104, heart rate 84, respirations 36, blood pressure 156/90, pulse ox 94% on room air. HEENT: Head normocephalic, atraumatic. Eyes: Extraocular muscles are intact. Pupils are equal, round and reactive to light and accommodation. Ears: No lesions. Nose appeared normal. Throat: No exudate or erythema. NECK: Supple. No JVD, no carotid bruit. No lymphadenopathy or thyromegaly. LUNGS: Diminished breath sounds bilaterally. Clear to auscultation. Percussion note normal. Chest symmetrical. HEART: S1, S2, no S3. Grade III systolic murmur. No cyanosis or clubbing. No ascites. Pulses: Dorsalis pedis and posterior tibial pulses +1 to +2 bilaterally. ABDOMEN: Soft. Nontender. Bowel sounds active. No CVA tenderness. No mass felt. EXTREMITIES: No leg edema. Full range of motion of all extremities, equal. NEUROLOGIC: No focal deficit. Cranial nerves II through XII are grossly intact. No headache, no double vision or headache. SKIN: Not dry. Intact. Turgor - normal. LYMPHATIC: No palpable lymph nodes/no lymphedema. MUSCULOSKELETAL: Normal joints with no swelling. Muscle tone is normal. LABS: Urine is positive for 2+ protein, 1+ ketones, 2+ blood, nitrite positive, 3+ bacteria. CT of the chest shows stable right-sided displaced rib fractures. No pneumothorax, dependent atelectasis, small right pleural effusion. ABGs on room air: pH 7.497, pc02 31, p02 66, base excess of 1, bicarb 24, TC02 25, 02 sat 95. Sodium 135, potassium 4.0, BUN 21, creatinine 1.16, AST 25, ALT 12. Total protein 6.7. White count 9.27, hemoglobin 13.8, hematocrit 40.5, platelets 144. ASSESSMENT: 1. URINARY TRACT INFECTION, POSSIBLE UROSEPSIS, URINARY CULTURE PENDING, BLOOD CULTURE PENDING. 2. FEVER. 3. DEHYDRATION. 4. ACUTE RENAL FAILURE. 5. GENERALIZED WEAKNESS. PLAN: 1. We will admit to [facility]. 2. Routine telemetry orders. 3. CBC, CMP daily. 4. NS IV @ 75 cc/hr. 5. Regular diet. 6. Continue home medications. 7. Start Rocephin 1 gm IV daily. 8. Azactam 1 gm IV q.12. 9. Tylenol as needed for fever. 10. Oxygen 1 to 2L as needed. 11. Zofran 4 mg p.o. q.6hr p.r.n. nausea. 12. Will follow very closely. TIME SPENT: More than 70 minutes. MTDD
[2018-11-12] MEDS: SINEMET 25-100 PO SCH ×3 (09:50→17:20)
[2018-11-12] MEDS: MAXIPIME 2 GM/50 ML D5W 2 GM/50 ML BAG IV SCH ×2 (09:51→20:55)
[2018-11-12] MEDS: COREG PO SCH (09:51)
[2018-11-12] MEDS: MIRALAX PO SCH (09:51)
[2018-11-12] MEDS: NORVASC PO SCH ×2 (09:52→20:54)
[2018-11-12] MEDS: RASAGILINE MESYLATE 1 MG PO SCH (09:54)
[2018-11-12] MEDS: SYMMETREL PO SCH (09:54)
[2018-11-12] MEDS: FLUDROCORTISONE ACETATE 0.1 MG PO SCH (09:55)
[2018-11-12] MEDS: BACTROBAN TP SCH ×2 (09:56→21:01)
[2018-11-12] MEDS: COZAAR PO SCH ×2 (09:56→20:55)
[2018-11-12] MEDS: ASPIRIN CHEWABLE PO SCH (09:56)
[2018-11-12] MEDS: LOVENOX SUBCUT SCH (09:57)
--- NOTE | 2018-11-12 10:11 | PCM.PROG ---
Attending Provider: ATTENDING PROVIDER: Dr. ANDRES MOLINA This patient is seen with Lizzy Gamez, Nurse Practitioner. DATE OF SERVICE: 11/12/18 SUBJECTIVE: This 88 year old WHITE/ M was hospitalized 11/09/18. The patient is resting comfortably. The patient did have large bowel movement this morning and is feeling better. He is afebrile. The patient still has some weakness and was agreeable for physical therapy. REVIEW OF SYSTEMS: CONSTITUTIONAL: No night sweats. No fatigue, malaise, lethargy. No fever or chills. Weakness. HEENT: Eyes: No visual changes. No eye pain. No eye discharge. ENT: No runny nose. No epistaxis. No sinus pain. No odynophagia. No congestion. RESPIRATORY: No cough, no congestion. No hemoptysis. No shortness of breath. CARDIOVASCULAR: No angina symptoms. No CHF symptoms. No atypical chest pain for CAD. No palpitations. No orthopnea.. GASTROINTESTINAL: No abdominal pain. No nausea or vomiting. No diarrhea or constipation. No hematemesis. No hematochezia. GENITOURINARY: No urgency. No frequency. No dysuria. No hematuria. No obstructive symptoms. No discharge. No pain. No significant abnormal bleeding. MUSCULOSKELETAL: No musculoskeletal pain; no joint swelling. NEUROLOGICAL: Awake, alert, oriented to time, place and person. No headache. No neck pain. No syncope. No seizures. No dizziness. PSYCHIATRIC: Not anxious. No depression. No suicidal thoughts. No homicidal thoughts. SKIN: No rash. No lesions. No wounds. ENDOCRINE: No unexplained weight loss. No weight gain. HEMATOLOGIC/LYMPHATIC: No anemia. No purpura. No petechiae. No prolonged or excessive bleeding. No palpable lymph nodes. PHYSICAL EXAMINATION: GENERAL: The patient is awake, alert and oriented, sitting in the chair in no distress. VITAL SIGNS: Temperature 97.8 F, Pulse 75, Respiratory Rate 18, BP 178/88, Pulse Ox 94% HEENT: Head normocephalic, atraumatic. Eyes: Extraocular muscles are intact. Pupils are equal, round and reactive to light and accommodation. Ears: No lesions. Nose appeared normal. Throat: No exudate or erythema. NECK: Supple. No JVD, no carotid bruit. No lymphadenopathy or thyromegaly. LUNGS: Diminished breath sounds. Clear to auscultation. Percussion note normal. Chest symmetrical. HEART: S1, S2, no S3. Grade II to III/ systolic murmurs. No cyanosis or clubbing. No ascites. Pulses: Dorsalis pedis and posterior tibial pulses +1 to +2 both sides. ABDOMEN: Soft. Non-tender. Bowel sounds active. No CVA tenderness. No mass felt. EXTREMITIES: No edema. Full range of motion of all extremities, equal. Skin lesion right lower extremity. NEUROLOGIC: No focal deficit. Cranial nerves II through XII are grossly intact. No headache, no double vision or headache. SKIN: Not dry. Intact. Turgor-normal. LYMPHATIC: No palpable lymph nodes/no lymphedema. MUSCULOSKELETAL: Normal joints with no swelling. Muscle tone is normal. LAB REVIEW: 11/12/18 04:44 11/12/18 04:44 11/12/18 04:44: Sodium 136.8, Potassium 3.11 L, Chloride 100.6, Carbon Dioxide 32.3 H, Anion Gap 7.01, BUN 16.7, Creatinine 0.94, Estimated GFR (MDRD) 76.00, BUN/Creatinine Ratio 17.76, Glucose 113.6 H, Calcium 8.53, Total Bilirubin 0.54 , AST 35.0, ALT 18.9, Alkaline Phosphatase 70.3, Total Protein 5.89 L, Albumin 3.13 L, Globulin 2.76, Albumin/Globulin Ratio 1.13 11/12/18 04:44: WBC 4.66, RBC 3.91 L, Hgb 11.7 L, Hct 34.4 L, MCV 88.0, MCH 29.9 , MCHC 34.0, RDW Coeff of Darrel 13.5, Plt Count 144, Immature Gran % (Auto) 0.2, Neut % (Auto) 61.1, Lymph % (Auto) 24.2, Bollinger % (Auto) 10.7 H, Eos % (Auto) 3.4 , Baso % (Auto) 0.4, Immature Gran # (Auto) 0.0, Neut # (Auto) 2.8, Lymph # ( Auto) 1.1, Bollinger # (Auto) 0.5, Eos # (Auto) 0.2, Baso # (Auto) 0.0 ASSESSMENT: Please see below. 1. Urinary tract infection, Psudomonas 2. Dehydration 4. Aortic Stenosis 5. Generalized weakness. PLAN: 1. Norvasc 5mg PO BID 2. Potassium 40mg BID 3. Remove dressing from right extremity, apply Bactroban and leave to air. 4. Blood culture positive for Klebsiella. 5. The patient will be started PT Plan and coordination of the patient's care discussed in the presence of Bill Board Poster and nurse. SCRIBED BY: Brooke BUSBY scribed while in presence of service performed by Dr. Molina/Lizzy Gamez APRN on 11/12/18 ([id number])
[2018-11-12] MEDS: K-DUR PO SCH ×2 (12:12→17:25)
--- NOTE | 2018-11-12 16:03 | RS.OTINEVL ---
Subjective - Patient information Date of Evaluation: 11/12/18 Date of Arrival on Unit: 11/09/18 Admitted From:: [facility] Diagnosis: Urosepsis PRECAUTIONS: At risk for falls, Has seizures Usual Living Arrangement: [facility] Living Arrangement Comments: Pt was at home and then he had a fall and went to the [facility] for therapy and was about to be discharged home when he became sick again. Home Environment: House Medical History Comments:: Spinal stenosis, CABG x 3, CAD, Hypercholesterolemia, Parkinsons disease, Prostate CA, OA. Surgical History: CABG Surgical History Comments:: CABG x 3, CAD, Prostate CA Subjective Information/ Patient Comments:: "I have hallucinations. I need help with everything." - Level of function Abilities prior to this admission: [facility] and was about to be discharged to home when he became sick and came to the hospital. Current Level of Function: Partially Dependent Current Equipment Used at Home: Wheeled walker Pain Assessment - Pain Pain Score: 0 Interventions - Objective Patient Orientation: Person, Place Current Interventions: IV's, Oxygen, Telemetry Observation: Pt is weak and closes his eyes alot. Pt requires verbal cues to complete tasks. Interventions - ROM Right Upper Extremity AROM: WFL's Left Upper Extremity AROM: WFL's - Strength Right Upper Extremity Strength: Mild Weakness Left Upper Extremity Strength: Mild Weakness - Sensation Right Upper Extremity Sensation: Intact/Normal Left Upper Extremity Sensation: Intact/Normal Coordination - Tests Bilateral Comments: Pt has impaired coordination of BUE and impaired proprioception. Balance - Sitting Balance Dynamic Sitting Balance: Fair - Standing Balance Static Standing Balance: Poor Dynamic Standing Balance: Poor ADL Skills - Self Feeding Self Feeding: Min Assist - Grooming Grooming: Min Assist - Bathing Bathing UE: Not Tested Bathing LE: Not Tested - Dressing Dressing UE: Not Tested Dressing LE: Not Tested - Toilet Management Toileting Management: Min Assist Functional Mobility - Transfers Sit to Stand: Min Assist Stand to Sit: Min Assist Stand Pivot Transfers: Min Assist - Ambulation Weight Bearing Status: FWB Assistive Device Used: Rolling Walker Assistance needed with Ambulation: Min Assist, 1 person assist - Safety Awareness Safety Awareness: Good [place] INDEX SCORE: . Additional Treatment Performed - Time with patient Length of Evaluation: 37 Total treatment time: 37 Activities Would you be interested in leaving your room for activities?: Yes Would you enjoy group activities?: Yes Do you have difficulty with your vision?: Yes Patient Interests:: Watching Television, Visiting/Socializing Patient Education Patient Education: Education of diagnosis Teaching Recipient: Patient Teaching Methods: Discussion Assessment Problem List:: Decreased level of function, Requires training/education, Decreased safety/Risk of falls, Weakness Rehab Potential: Good Further Therapy Indicated?: Yes Evaluation Complexity: HISTORY: Medium, EXAM OF BODY SYSTEMS: Medium, CLINICAL DECISION MAKING: Medium Short Term Goals - Goals GOAL 1: Pt to be CGA for self feeding. Goal to be met by: 11/16/18 GOAL 2: Pt to increase activity tolerance to 10 minutes. Goal to be met by: 11/16/18 GOAL 3: Pt to increase strength in BUE to 4/5. Goal to be met by: 11/16/18 [facility] Goals GOAL 1: Pt to be SUP for self feeding. Goal to be met by: 11/19/18 GOAL 2: Pt to increase activity tolerance to 15 minutes. Goal to be met by: 11/19/18 GOAL 3: Pt to increase BUE strength to 4+/5. Goal to be met by: 11/20/18 Plan Plan of Care: Therapeutic EX, Neuromuscular Re-Educ, Therapeutic Activity, Self- Care/Home Management Frequency of Treatment: 1-2 X day, as tolerated Duration of Treatment: 1 Week Anticipated Discharge Destination: [facility] Treatment Diagnosis (ICD 10 Codes): Z74.1 Need for self care, [id number] Has the Physician been added for Co-signature?: Yes
--- NOTE | 2018-11-12 16:05 | RS.PTINEVL ---
Subjective - Patient information Date of Evaluation: 11/12/18 Date of Arrival on Unit: 11/08/18 Admitted From:: [facility] Diagnosis: urosepsis, parkinson's disease Usual Living Arrangement: [facility] Living Home Environment: Level/No stairs Medical History: Hypertension, Arthritis Medical History Comments:: CAD, LATEX ALLERGY?: No Surgical History: Lumbar Spine, CABG Medications: see chart - Level of function Prior to this admission, the patient could do the following:: Partially Dependent Ambulation Current Level of Function: Partially Dependent Current Equipment Used at Home: Wheeled walker Interventions - Objective Patient Orientation: Person, Place Current Interventions: IV's, Oxygen, Telemetry Range of Motion - ROM Right Upper Extremity AROM: WFL's Left Upper Extremity AROM: WFL's Right Lower Extremity AROM: WFL's Left Lower Extremity AROM: WFL's Muscle Strength - Muscle Strength Right Upper Extremity Strength: Mild Weakness (grossly 4-/5) Left Upper Extremity Strength: Mild Weakness (grossly 4-/5) Right Lower Extremity Strength: Mild Weakness (hip flex 4-/5, knee flex/ext 4/5 , ankle DF/PF 4/5) Left Lower Extremity Strength: Mild Weakness (hip flex 4-/5, knee flex/ext 4/5, ankle DF/PF 4/5) Sensation - Sensation Right Upper Extremity Sensation: Intact/Normal Left Upper Extremity Sensation: Intact/Normal Right Lower Extremity Sensation: Intact/Normal Left Lower Extremity Sensation: Intact/Normal Palpation Palpation Findings: None/Normal Balance - Sitting Balance and Reactions Static Sitting Balance: Fair Dynamic Sitting Balance: Poor Sitting Equilibrium Reactions: Delayed Left, Delayed Right Sitting Protective Reactions: Delayed Left, Delayed Right - Standing Balance and Reactions Static Standing Balance: Poor Dynamic Standing Balance: Poor Standing Equilibrium Reactions: Delayed Right Standing Protective Reactions: Delayed Left, Delayed Right Functional Mobility - Bed Mobility Rolling R/L: Min Assist, 1 person assist Supine to Sit: Min Assist, Mod Assist, 1 person assist - Transfers Sit to Stand: Min Assist, 2 person assist Stand to Sit: Min Assist, 2 person assist - Safety Awareness Safety Awareness: Poor [place] INDEX SCORE: n/a Ambulation - Ambulation Assistive Device Used: Rolling Walker Orthotic/Prosthetic Device: No Distance: 120ft Assistance needed with Ambulation: Min Assist, 2 person assist Gait Deviations: Forward posture, Short stride, Deviates from path Ambulation Comments: pt amb with flexed posture, decreased step length as well as festinating gait pattern and narrow LILIAN. Factors Affecting Ambulation: Decreased Balance, Weakness, Decreased Coordination, Limited Endurance Treatment time - Units charged Gait trainin - Time with patient Length of Evaluation: 25 Total treatment time: 38 Patient Education - Education Patient Education: Activity Modification, Education of Plan of Care Teaching Recipient: Patient, Family Teaching Methods: Discussion Comments: discussion regarding POC Assessment - Assessment Problem List:: Decreased level of function, Requires training/education, Decreased safety/Risk of falls, Weakness, Cognitive status limits abilities Rehab Potential: Good Further Therapy Indicated?: Yes Candidate for Swing Bed for Therapy Services?: Feel pt is not a candidiate for swing bed due to [facility] at [facility] and plans [place] [facility] [place]. Evaluation Complexity: HISTORY: Medium, EXAM OF BODY SYSTEMS: Medium, CLINICAL PRESENTATION: Medium, CLINICAL DECISION MAKING: Medium Short Term Goals GOAL #1: pt demonstrate rolling and scooting with min x 1 Goal to be met by: 11/14/18 GOAL #2: Transfer sup to/from sit min x 1 Goal to be met by: 11/14/18 GOAL #3: Sit to/from stand min x 1 Goal to be met by: 11/14/18 GOAL #4: pt amb with rwx 140ft with CGA with improved posture Goal to be met by: 11/14/18 [facility] Goals GOAL #1: Transfer sup to/from sit to/from stand CGA to SBA Goal to be met by: 11/16/18 GOAL #2: pt amb with rwx functional household distances with CGA with no LOB Goal to be met by: 11/16/18 GOAL #3: Improve dyn stand balance fair- Goal to be met by: 11/16/18 Plan Plan of Care: Therapeutic EX, Therapeutic Activity Other:: gait training Frequency of Treatment: 1-2 X day, as tolerated Duration of Treatment: 5 days Anticipated Discharge Destination: [facility] Treatment Diagnosis (ICD 10 Codes): R 26.2 difficulty walking. R 26.81 balance impaired Has the Physician been added for Co-signature?: Yes
[2018-11-12] MEDS: PYRIDOXINE HCL PO SCH (20:55)
[2018-11-12 21:49] VITALS: BP 150/85; TEMP 98
[2018-11-13] MEDS ORDERED: NORVASC ONE (08:40)
--- NOTE | 2018-11-14 08:05 | DS ---
DATE OF SERVICE: 11/13/18 FINAL DIAGNOSIS: 1. UTI, PSEUDOMONAS AERUGINOSA 2. DEHYDRATION 3. ACUTE KIDNEY INJURY 4. HYPERTENSION 5. PARKINSON'S DISEASE 6. DYSLIPIDEMIA 7. SKIN ABRASION, RIGHT LOWER EXTREMITY, POSITIVE FOR KLEBSIELLA PNEUMONIAE DISCHARGE INSTRUCTIONS: 1. Discharge to [facility]. 2. PT/OT evaluation. 3. Vital signs daily. 4. Up to dining room for meals. 5. Decubitus precautions. 6. Continue same diet. 7. Incontinent care p.r.n. 8. CBC, CMP in one week. 9. Followup appointment in 7 to 10 days with Lizzy Gamez APRN on rounds. MEDICATIONS AT DISCHARGE: Pyridoxine HCL 50 mg @ bedtime Azilect 1 mg p.o. daily Lovastatin 40 mg at bedtime Losartan 50 mg b.i.d. [place] 10-325 one q.6hr p.r.n. Fludrocortisone Acetate 0.1 mg p.o. daily Coreg 3.125 mg daily Carbidopa-Levodopa 25-100 t.i.d. Bisacodyl two tab q.12hr p.r.n. Aspirin 81 mg daily Amantadine 100 mg daily NEW PRESCRIPTIONS: Levaquin 250 mg daily for 5 days Norvasc 5 mg b.i.d. Bactroban ointment b.i.d. right calf abrasions and any scabbed areas to right guerrero. DISCONTINUED MEDICATIONS: None DIET INSTRUCTIONS: As previous. ACTIVITY: Up to dining room for meals per PT SMOKING: NA HOSPITAL COURSE: This is an 88-year-old white male who has been at [facility] for physical and occupational therapy. He was brought in with fever of 102, increased confusion. Urine was abnormal. Urine culture was positive for Pseudomonas. He was initially placed on Rocephin and Azactam IV. This was then changed to Cefepime IV q.12hr. Over the course of the past several days, fever has resolved. Kidney function was elevated showing mild dehydration initially. He was started on NS at 125 and quickly decreased to 75 cc's an hour. Blood pressure has been elevated, initially was hypotensive and then has been elevated. We added Norvasc 5 mg b.i.d. which has improved. He had an abrasion to the right lower extremity from the [facility] which was positive for Klebsiella, sensitive to the Cefepime. It doesn't look infected other than superficially. He is going to go back to the [facility] today on Levaquin 250 mg daily for the next five days which is sensitive per both cultures and sensitivities. He is going to go back to [facility]. CBC, CMP in one week. He is to resume physical therapy as soon as tolerated. The patient is discharged in stable condition with CBC, CMP in one week. TIME SPENT: More than 60 minutes. MTDD
--- NOTE | 2018-11-14 09:22 | PN ---
DATE OF SERVICE: 11/09/18 SUBJECTIVE: The patient has been afebrile. Kidney function slightly worse. The patient has been afebrile since being in the unit. Still somewhat confused at times. REVIEW OF SYSTEMS: CONSTITUTIONAL: Positive for weakness and low grade temp. No night sweats. No fatigue, malaise, lethargy. No chills. HEENT: Eyes: No visual changes. No eye pain. No eye discharge. ENT: No runny nose. No epistaxis. No sinus pain. No sore throat. No odynophagia. No congestion. RESPIRATORY: No cough, no congestion. No hemoptysis. No shortness of breath. CARDIOVASCULAR: No angina symptoms. No CHF symptoms. No atypical chest pain for CAD. No palpitations. No PND. No orthopnea. GASTROINTESTINAL: No abdominal pain. No nausea or vomiting. No diarrhea or constipation. No hematemesis. No hematochezia. GENITOURINARY: No urgency. No frequency. No dysuria. No hematuria. No obstructive symptoms. No discharge. No pain. No significant abnormal bleeding. MUSCULOSKELETAL: No musculoskeletal pain; no joint swelling. NEUROLOGICAL: Positive for confusion. No headache. No neck pain. No syncope. No seizures. No dizziness. PSYCHIATRIC: Not anxious. No depression. No suicidal thoughts. No homicidal thoughts. SKIN: No rash. No lesions. No wounds. ENDOCRINE: No unexplained weight loss. No weight gain. HEMATOLOGIC/LYMPHATIC: No anemia. No purpura. No petechiae. No prolonged or excessive bleeding. No palpable lymph nodes. PHYSICAL EXAMINATION: HEENT: Head normocephalic, atraumatic. Eyes: Extraocular muscles are intact. Pupils are equal, round and reactive to light and accommodation. Ears: No lesions. Nose appeared normal. Throat: No exudate or erythema. NECK: Supple. No JVD, no carotid bruit. No lymphadenopathy or thyromegaly. LUNGS: Diminished breath sounds. Clear to auscultation. Percussion note normal. Chest symmetrical. HEART: S1, S2, no S3. Grade II to III/ systolic ejection murmur. No cyanosis or clubbing. No ascites. Pulses: Dorsalis pedis and posterior tibial pulses +1 to +2 bilaterally. ABDOMEN: Soft. Nontender. Bowel sounds active. No CVA tenderness. No mass felt. EXTREMITIES: No edema. Full range of motion of all extremities, equal. NEUROLOGIC: Oriented to person. No focal deficit. Cranial nerves II through XII are grossly intact. No headache, no double vision or headache. SKIN: Not dry. Intact. Turgor - normal. LYMPHATIC: No palpable lymph nodes/no lymphedema. MUSCULOSKELETAL: Normal joints with no swelling. Muscle tone is normal. ASSESSMENT: 1. UROSEPSIS, URINE AND BLOOD CULTURES BOTH PENDING. 2. SEVERE AORTIC STENOSIS. 3. RECENT FALL WITH MULTIPLE RIGHT-SIDED RIB FRACTURES STATUS POST PNEUMOTHORAX, HAD CHEST TUBE. PNEUMOTHORAX HAS RESOLVED. FOLLOWED BY DR. CHAMORRO. 4. ACUTE RENAL FAILURE. 5. DEHYDRATION. PLAN: 1. Continue IV Rocephin and Azactam. Again urine cultures pending. 2. Decrease IV fluids to 75 cc/hr. Normal Saline. 3. The patient is to continue in the unit. 4. Will follow closely. TIME SPENT: More than 30 minutes. Plan and coordination of the patient's care discussed in the presence of nurse. JACKELYN
--- NOTE | 2018-11-15 08:47 | PN ---
DATE OF SERVICE: 11/11/18 SUBJECTIVE: 88-year-old male hospitalized with urosepsis. The patient has negative rods in the blood. The patient is feeling a lot better. Appetite has improved. The is very happy with the patient's progress. REVIEW OF SYSTEMS: CONSTITUTIONAL: Weakness and fatigue. No night sweats. No malaise, lethargy. No fever or chills. HEENT: Eyes: No visual changes. No eye pain. No eye discharge. ENT: No runny nose. No epistaxis. No sinus pain. No sore throat. No odynophagia. No congestion. RESPIRATORY: No cough, no congestion. No hemoptysis. No shortness of breath. CARDIOVASCULAR: No angina symptoms. No CHF symptoms. No atypical chest pain for CAD. No palpitations. No PND. No orthopnea. GASTROINTESTINAL: The patient is gaining appetite back. No abdominal pain. No nausea or vomiting. No diarrhea or constipation. No hematemesis. No hematochezia. GENITOURINARY: No urgency. No frequency. No dysuria. No hematuria. No obstructive symptoms. No discharge. No pain. No significant abnormal bleeding. MUSCULOSKELETAL: No musculoskeletal pain; no joint swelling. NEUROLOGICAL: No headache. No neck pain. No syncope. No seizures. No dizziness. PSYCHIATRIC: Not anxious. No depression. No suicidal thoughts. No homicidal thoughts. SKIN: No rash. No lesions. No wounds. ENDOCRINE: No unexplained weight loss. No weight gain. HEMATOLOGIC/LYMPHATIC: No anemia. No purpura. No petechiae. No prolonged or excessive bleeding. No palpable lymph nodes. PHYSICAL EXAMINATION: VITAL SIGNS: Temperature 98.5, pulse 70, respiratory rate 20, blood pressure 140/90, pulse ox 90% on room air. HEENT: Head normocephalic, atraumatic. Eyes: Extraocular muscles are intact. Pupils are equal, round and reactive to light and accommodation. Ears: No lesions. Nose appeared normal. Throat: No exudate or erythema. NECK: Supple. No JVD, no carotid bruit. No lymphadenopathy or thyromegaly. LUNGS: Clear to auscultation. Percussion note normal. Chest symmetrical. HEART: S1, S2, no S3. No murmurs. No cyanosis or clubbing. No ascites. Pulses: Dorsalis pedis and posterior tibial pulses +1 to +2 bilaterally. ABDOMEN: Soft. Nontender. Bowel sounds active. No CVA tenderness. No mass felt. EXTREMITIES: No edema. Full range of motion of all extremities, equal. NEUROLOGIC: No focal deficit. Cranial nerves II through XII are grossly intact. No headache, no double vision or headache. SKIN: Warm and dry. Intact. Turgor - a lot better. LYMPHATIC: No palpable lymph nodes/no lymphedema. MUSCULOSKELETAL: Normal joints with no swelling. Muscle tone is normal. LABS: Hemoglobin/hematocrit stable. ASSESSMENT: 1. Urosepsis with gram negative rods. 2. Parkinson's with mild dementia, has improved, oriented to time, place and person. PLAN: 1. Continue IV antibiotics. 2. Continue IV fluids. TIME SPENT: More than 30 minutes. Plan and coordination of the patient's care discussed in the presence of nurse. JACKELYN
--- NOTE | 2018-11-15 08:52 | PN ---
DATE OF SERVICE: 11/09/18 SUBJECTIVE: The patient was seen and examined with the nurse practitioner. The patient was hospitalized with urinary tract infection with high fever. The patient's is in the room. He is running temperature of 100.3 this afternoon. This morning he was afebrile. The patient is on Rocephin and Azactam. His appetite is still not up to par. PHYSICAL EXAMINATION: HEENT: Head normocephalic, atraumatic. Eyes: Extraocular muscles are intact. Pupils are equal, round and reactive to light and accommodation. Ears: No lesions. Nose appeared normal. Throat: No exudate or erythema. NECK: Supple. No JVD, no carotid bruit. No lymphadenopathy or thyromegaly. LUNGS: Clear to auscultation. Percussion note normal. Chest symmetrical. HEART: S1, S2, no S3. No murmur. No cyanosis or clubbing. No ascites. Pulses: Dorsalis pedis and posterior tibial pulses +1 to +2 bilaterally. ABDOMEN: Soft. Nontender. Bowel sounds active. No CVA tenderness. No mass felt. EXTREMITIES: No edema. Full range of motion of all extremities, equal. NEUROLOGIC: No focal deficit. Cranial nerves II through XII are grossly intact. No headache, no double vision or headache. SKIN: Not dry. Intact. Turgor - normal. LYMPHATIC: No palpable lymph nodes/no lymphedema. MUSCULOSKELETAL: Normal joints with no swelling. Muscle tone is normal. ASSESSMENT: The patient has Parkinson's disease and also coronary artery disease. Cardiovascular status is stable. TIME SPENT: More than 30 minutes. Plan and coordination of the patient's care discussed in the presence of nurse. JACKELYN
--- NOTE | 2018-11-15 08:56 | PN ---
DATE OF SERVICE: 11/09/18 - Admitting Note SUBJECTIVE: 88-year-old white male hospitalized with fever and chills. The fever was more than 102 at home so the same thing noted in the emergency room. The patient had abnormal UA with evidence of urinary tract infection. REVIEW OF SYSTEMS: CONSTITUTIONAL: Fatigue, fever and chills with some confusion. No night sweats. No malaise, lethargy. HEENT: Eyes: No visual changes. No eye pain. No eye discharge. ENT: No runny nose. No epistaxis. No sinus pain. No sore throat. No odynophagia. No congestion. RESPIRATORY: No cough, no congestion. No hemoptysis. No shortness of breath. CARDIOVASCULAR: No angina symptoms. No CHF symptoms. No atypical chest pain for CAD. No palpitations. No PND. No orthopnea. GASTROINTESTINAL: No abdominal pain. No nausea or vomiting. No diarrhea or constipation. No hematemesis. No hematochezia. GENITOURINARY: No urgency. No frequency. No dysuria. No hematuria. No obstructive symptoms. No discharge. No pain. No significant abnormal bleeding. MUSCULOSKELETAL: No musculoskeletal pain; no joint swelling. NEUROLOGICAL: No headache. No neck pain. No syncope. No seizures. No dizziness. PSYCHIATRIC: Not anxious. No depression. No suicidal thoughts. No homicidal thoughts. SKIN: No rash. No lesions. No wounds. ENDOCRINE: No unexplained weight loss. No weight gain. HEMATOLOGIC/LYMPHATIC: No anemia. No purpura. No petechiae. No prolonged or excessive bleeding. No palpable lymph nodes. ALLERGIES: SULFA PERSONAL/FAMILY/SOCIAL HISTORY: The patient is , lives with . Nonsmoker. No alcohol abuse. Tries to do all activity of daily living. PAST MEDICAL/SURGICAL HISTORY: The patient has history of Parkinson's disease Coronary artery disease with history of [place] Congestive heart failure Hypertension Dyslipidemia Generalized osteoarthritis Neuropathy MEDICATIONS: Aspirin Carbidopa Levodopa Losartan Lovastatin Azilect Coreg Amantadine Fludrocortisone (The patient has history of syncopal episode with postural hypotension and that is why the patient is on Fludrocortisone) [place] Vitamin B6 The patient is active with history of Parkinson's disease for a long time. PHYSICAL EXAMINATION: GENERAL: The patient is oriented to time, place and person. VITAL SIGNS: Temperature 101.8, pulse 90, respiratory rate 24, BP 160/70, pulse ox 95%. HEENT: Head normocephalic, atraumatic. Eyes: Extraocular muscles are intact. Pupils are equal, round and reactive to light and accommodation. Ears: No lesions. Nose appeared normal. Throat: No exudate or erythema. NECK: Supple. No JVD, no carotid bruit. No lymphadenopathy or thyromegaly. LUNGS: Decreased breath sounds but clear to auscultation. Percussion note normal. Chest symmetrical. HEART: S1, S2, no S3. No murmurs. No cyanosis or clubbing. No ascites. Pulses: Dorsalis pedis and posterior tibial pulses +1 to +2 bilaterally. ABDOMEN: Soft. Nontender. Bowel sounds active. No CVA tenderness. No mass felt. EXTREMITIES: No edema. Full range of motion of all extremities, equal. NEUROLOGIC: No focal deficit. Cranial nerves II through XII are grossly intact. No headache, no double vision or headache. SKIN: Dry. Intact. Turgor - normal. Mucous membranes dry. LYMPHATIC: No palpable lymph nodes/no lymphedema. MUSCULOSKELETAL: Normal joints with no swelling. Muscle tone is normal. ASSESSMENT: 1. UROSEPSIS WITH FEVER AND CHILLS. 2. PARKINSON'S DISEASE. 3. CORONARY ARTERY DISEASE. 4. DYSLIPIDEMIA 5. HYPERTENSION. 6. HISTORY OF SYNCOPAL EPISODE WITH POSTURAL HYPOTENSION. 7. THE PATIENT HAD SOME DEHYDRATION WITH CREATININE OF 1.2, BUN 22. PLAN: 1. Give the patient Rocephin and Azactam. 2. Continue the rest of the medications. 3. IV fluids to be given. 4. Will monitor CBC, CMP. 5. Also monitor the patient's telemetry. 6. The patient will be in [facility]. CONDITION: STABLE. TIME SPENT: More than 30 minutes. Plan and coordination of the patient's care discussed in the presence of nurse. JACKELYN
--- NOTE | 2018-11-15 09:23 | PN ---
DATE OF SERVICE: 11/12/18 SUBJECTIVE: The patient was seen and examined with the nurse practitioner. The patient's septicemia seems to have resolved. The patient has gram negative rods in the urine. The patient is being treated with Rocephin and Azactam. Overall condition with appetite has improved. Condition stable. TIME SPENT: More than 30 minutes. Plan and coordination of the patient's care discussed in the presence of nurse. JACKELYN
--- NOTE | 2018-11-15 09:28 | PN ---
DATE OF SERVICE: 11/13/18 SUBJECTIVE: The patient was seen and examined with the nurse practitioner. The patient's condition is stable. The patient is up and about with help. He is afebrile. Cardiovascular status is stable. No dysuria, no frequency, no symptoms of urinary tract infection. Condition is stable. The patient's dementia is because of change of location where he sleeps, medications also septicemia here with gram negative rods. Otherwise condition is stable. TIME SPENT: More than 30 minutes. Plan and coordination of the patient's care discussed in the presence of nurse. JACKELYN
--- NOTE | 2018-11-15 09:34 | PN ---
DATE OF SERVICE: 11/10/18 SUBJECTIVE: This 88-year-old white male hospitalized with urosepsis. The patient's condition seems to be improving. He had some oral intake last evening and also ready for breakfast this morning. He was more alert according to the who is present in the room as usual. REVIEW OF SYSTEMS: CONSTITUTIONAL: No night sweats. No fatigue, malaise, lethargy. No fever or chills. HEENT: Eyes: No visual changes. No eye pain. No eye discharge. ENT: No runny nose. No epistaxis. No sinus pain. No sore throat. No odynophagia. No congestion. RESPIRATORY: No cough, no congestion. No hemoptysis. No shortness of breath. CARDIOVASCULAR: No angina symptoms. No CHF symptoms. No atypical chest pain for CAD. No palpitations. No PND. No orthopnea. GASTROINTESTINAL: No abdominal pain. No nausea or vomiting. No diarrhea or constipation. No hematemesis. No hematochezia. GENITOURINARY: No urgency. No frequency. No dysuria. No hematuria. No obstructive symptoms. No discharge. No pain. No significant abnormal bleeding. MUSCULOSKELETAL: No musculoskeletal pain; no joint swelling. NEUROLOGICAL: No headache. No neck pain. No syncope. No seizures. No dizziness. PSYCHIATRIC: Not anxious. No depression. No suicidal thoughts. No homicidal thoughts. SKIN: No rash. No lesions. No wounds. ENDOCRINE: No unexplained weight loss. No weight gain. HEMATOLOGIC/LYMPHATIC: No anemia. No purpura. No petechiae. No prolonged or excessive bleeding. No palpable lymph nodes. PHYSICAL EXAMINATION: GENERAL: The patient is still feeling sleepy and tired. VITAL SIGNS: Temperature 98.6, pulse 72, respiratory rate 24, BP 188/80, pulse ox 95% on room air. HEENT: Head normocephalic, atraumatic. Eyes: Extraocular muscles are intact. Pupils are equal, round and reactive to light and accommodation. Ears: No lesions. Nose appeared normal. Throat: No exudate or erythema. NECK: Supple. No JVD, no carotid bruit. No lymphadenopathy or thyromegaly. LUNGS: Decreased breath sounds but clear to auscultation. Percussion note normal. Chest symmetrical. HEART: S1, S2, no S3. No murmurs. No cyanosis or clubbing. No ascites. Pulses: Dorsalis pedis and posterior tibial pulses +1 to +2 bilaterally. ABDOMEN: Soft. Nontender. Bowel sounds active. No CVA tenderness. No mass felt. EXTREMITIES: No edema. Full range of motion of all extremities, equal. NEUROLOGIC: No focal deficit. Cranial nerves II through XII are grossly intact. No headache, no double vision or headache. SKIN: Not dry. Intact. Turgor - normal. LYMPHATIC: No palpable lymph nodes/no lymphedema. MUSCULOSKELETAL: Normal joints with no swelling. Muscle tone is normal. LABS: Hemoglobin 12.1, hematocrit 36, WBC 7,900, normal differential. Creatinine 1.2, BUN 22, potassium 3.5. ASSESSMENT: UROSEPSIS SEEMS TO BE UNDER CONTROL. THE PATIENT'S SKIN TURGOR IS A LOT BETTER. PLAN: 1. Continue IV fluids. 2. Continue IV antibiotics. 3. Encourage the patient to eat. Note: The patient's blood cultures grew gram negative rods. TIME SPENT: More than 30 minutes. Plan and coordination of the patient's care discussed in the presence of nurse. JACKELYN
--- NOTE | 2018-12-05 11:34 | PN ---
DATE OF SERVICE: 11/13/18 SUBJECTIVE: The patient is examined. Condition is stable. He has been afebrile. He has been getting up with assistance of physical therapy. Kidney function has improved. I believe he is ready for discharge. REVIEW OF SYSTEMS: CONSTITUTIONAL: Positive for weakness. 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 No night sweats. No fatigue, malaise, lethargy. No fever or chills. HEENT: Eyes: No visual changes. No eye pain. No eye discharge. ENT: No runny nose. No epistaxis. No sinus pain. No sore throat. No odynophagia. No congestion. RESPIRATORY: No cough, no congestion. No hemoptysis. No shortness of breath. CARDIOVASCULAR: No angina symptoms. No CHF symptoms. No atypical chest pain for CAD. No palpitations. No PND. No orthopnea. GASTROINTESTINAL: No abdominal pain. No nausea or vomiting. No diarrhea or constipation. No hematemesis. No hematochezia. GENITOURINARY: No urgency. No frequency. No dysuria. No hematuria. No obstructive symptoms. No discharge. No pain. No significant abnormal bleeding. MUSCULOSKELETAL: No musculoskeletal pain; no joint swelling. NEUROLOGICAL: No headache. No neck pain. No syncope. No seizures. No dizziness. PSYCHIATRIC: Not anxious. No depression. No suicidal thoughts. No homicidal thoughts. SKIN: No rash. No lesions. No wounds. ENDOCRINE: No unexplained weight loss. No weight gain. HEMATOLOGIC/LYMPHATIC: No anemia. No purpura. No petechiae. No prolonged or excessive bleeding. No palpable lymph nodes. PHYSICAL EXAMINATION: GENERAL: Alert and oriented to person and place. HEENT: Head normocephalic, atraumatic. Eyes: Extraocular muscles are intact. Pupils are equal, round and reactive to light and accommodation. Ears: No lesions. Nose appeared normal. Throat: No exudate or erythema. NECK: Supple. No JVD, no carotid bruit. No lymphadenopathy or thyromegaly. LUNGS: Clear to auscultation. Percussion note normal. Chest symmetrical. HEART: S1, S2, no S3. Grade II/ systolic murmur. No cyanosis or clubbing. No ascites. Pulses: Dorsalis pedis and posterior tibial pulses +1 to +2 bilaterally. ABDOMEN: Soft. Nontender. Bowel sounds active. No CVA tenderness. No mass felt. EXTREMITIES: No leg edema. Full range of motion of all extremities, equal. NEUROLOGIC: No focal deficit. Cranial nerves II through XII are grossly intact. No headache, no double vision or headache. SKIN: Not dry. Intact. Turgor - normal. LYMPHATIC: No palpable lymph nodes/no lymphedema. MUSCULOSKELETAL: Normal joints with no swelling. Muscle tone is normal. ASSESSMENT: 1. UTI positive for pseudomonas. 2. Dehydration improved. 3. Acute kidney on chronic kidney injury - stable. 4. Hypertension. 5. Parkinson's disease. 6. Dementia. PLAN: 1. Will send back to the long term. 2. Discharge on antibiotics, Omnicef 300 mg b.i.d. for the next five days. 3. CBC, CMP in one week. 4. I will see him at the long term. TIME SPENT: More than 30 minutes. Plan and coordination of the patient's care discussed in the presence of nurse. JACKELYN
== END 2018-11-13 15:20 | DRG 690 ==
LOC: ED 22:40 → SCU 11-09 00:53 → MEDSURG B 11-11 07:36
PROVIDERS: ADMIT Internal Medicine; ATTEND Internal Medicine
DX: I25.10 Atherosclerotic heart disease of native coronary artery without angina pectoris; B96.5 Pseudomonas (aeruginosa) (mallei) (pseudomallei) as the cause of diseases classified elsewhere; T14.8XXA Other injury of unspecified body region, initial encounter; N39.0 Urinary tract infection, site not specified; E78.5 Hyperlipidemia, unspecified; R50.9 Fever, unspecified; G20 Parkinson's disease; N30.00 Acute cystitis without hematuria; I10 Essential (primary) hypertension; R53.1 Weakness; I35.0 Nonrheumatic aortic (valve) stenosis; N17.9 Acute kidney failure, unspecified; E86.0 Dehydration